=== PATIENT | female | born 1950 | race Caucasian/White ===

== ENCOUNTER 2019-04-01 05:29 | Inpatient (IN) | payer MEDICARE ==
--- NOTE | 2019-03-19 17:49 | HP ---
Amended report to enter cosigning physician. HISTORY AND PHYSICAL: DATE OF ADMISSION/SURGERY: 04/01/19 DATE OF OFFICE VISIT: 03/19/19 SURGEON: Sadia Parada MD* (dictated by GIOVANNA Mills). PROCEDURE: Left total knee arthroplasty. CHIEF COMPLAINT: Left knee pain. HISTORY OF PRESENT ILLNESS: Ms. Davis is a 68-year-old female with end-stage osteoarthritis of the left knee. She has failed conservative treatment and elected to proceed with a left total knee arthroplasty. PAST MEDICAL HISTORY: GERD, asthma, and high cholesterol. PAST SURGICAL HISTORY: Right total knee arthroplasty, oophorectomy and C- section. CURRENT MEDICATIONS: 1. Rosuvastatin calcium 5 mg q.h.s. 2. Ventolin inhaler 2 puffs four times a day as needed. 3. Pantoprazole 30 and 40 mg every other day. 4. Tylenol as needed. 5. Vitamin D3 and daily multivitamin. ALLERGIES: No known drug allergies. FAMILY HISTORY: Denies. SOCIAL HISTORY: She is a 68-year-old female. She lives with her . She does not smoke or use drugs. She uses alcohol rarely. REVIEW OF SYSTEMS: A complete 14-point review of systems was reviewed with the patient. It was positive for asthma and GERD. She denies history of DVT, PE, hepatitis, HIV, or anesthesia problems. PHYSICAL EXAMINATION GENERAL: She is well developed, well nourished, in no acute distress. VITAL SIGNS: She stands 5 feet tall, weighs 186 pounds. Her blood pressure is 126/76. Her heart rate is 64. HEENT: Normocephalic, atraumatic. NECK: Supple. No palpable lymph nodes. PULMONARY: Lungs are clear to auscultation bilaterally. CARDIO: Regular rate and rhythm. Strong S1, S2. ABDOMEN: Soft, nontender, nondistended. NEUROLOGICAL: She is alert and oriented x3. MUSCULOSKELETAL: Left lower extremity, the skin is intact. There are no open wounds or abrasions. There is some moderate effusion of the left knee joint, some tenderness over the medial joint line. There is a varus deformity of the knee. Range of motion is 10 to 100 degrees of flexion with significant patellofemoral crepitus. She is able to dorsiflex and plantar flex. She has a 2+ dorsalis pedis pulse. ASSESSMENT AND PLAN: Ms. Davis is a 68-year-old female with end-stage osteoarthritis of the left knee. She has failed conservative treatment and elected to proceed with a left total knee arthroplasty. The surgery is scheduled for 04/01/[address] Parada discussed the risks and benefits of the surgery at today's visit and all of her questions were answered. She will follow up with Dr. Parada 2 weeks after the surgery. GIOVANNA MILLS [id number]/[facility] #: [id number] ESTEE
[~2019-04-01 05:29] MED LIST: Buffered Lidocaine 1% SYRIN* 1 ML/SYRINGE INTRADERM ONE; Tranexamic Acid 1,000 MG in NS 0.9% 50 ML* (outpatient use) IV SCH
--- OUTSIDE RECORDS SUMMARY | 2019-04-01 05:32 | XMS REPORT | Continuity of Care Document ---
:1950 External Reference #:[id number] Author Name Connie Bond Care Team Providers Name Role Phone Nkechi Jain FNP Primary Care Physician Unavailable Payers Date Identification Numbers Payment Provider Subscriber Expires: 2018 Policy Number: [id number] [employer] Jolene Davis PayID: [id number] [address] [place] [address] Policy Number: [id number] [employer] Jolene Davis PayID: [id number] [address] [place] [address] Problems Active Problems Provider Date Lipoma of skin Sadia Parada M.D. Onset: 06/10/2018 Localized, primary osteoarthritis Sadia Parada M.D. 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 Tobacco Use Start: Unknown Never Smoked Cigarettes Smoking Status Reviewed: 03/19/19 Never Smoked Cigarettes ETOH Use Rarely consumes alcohol Recreational Drug Use Denies Drug Use Tobacco Use Start: Unknown Patient has never smoked Exercise Type/Frequency Does not exercise Allergies, Adverse Reactions, Alerts Description No Known Drug Allergies Medications Active Medications SIG Qnty Indications Ordering Provider Date Rosuvastatin Calcium 1 by mouth every Unknown 5mg night at bedtime Tablets Ventolin HFA 2 puffs by mouth Unknown 108(90Base) four times a day mcg/Act Aerosol as needed Pantoprazole Sodium 1 by mouth every Unknown 40mg other day Solution Rec Tylenol take 2 tabs as Unknown 325mg Tablets needed every 6 hours for pain/fever One Daily 1 tab daily by Unknown Tablets mouth History Medications Aspirin take 1 by mouth 60tabs Sadia Tal, 08/15/2018 - 325mg Tablets twice a day for M.D. 09/27/2018 four weeks Zofran take 1 by mouth 30tabs Sadia Tal, 08/15/2018 - 4mg Tablets twice a day as M.D. 09/27/2018 needed for nausea Cyclobenzaprine HCL take 1 tab by 90tabs Sadia Parada, 08/15/2018 - 10mg mouth 2-3 times M.D. 09/27/2018 Tablets a day as needed Colace 1 tab by mouth 90caps Sadia Parada, 08/15/2018 - 100mg Capsules 2-3 times a day M.D. 11/08/2018 as needed Percocet 1-2 by mouth 70tabs Sadia Parada, 08/15/2018 - 5-325mg Tablets every 6 hours as M.D. 11/08/2018 needed pain Diazepam take 1 tab 30 1tabs Sadai Parada, 06/12/2018 - 5mg Tablets minutes prior to M.D. Unknown MRI. Mobic take 1 daily Unknown - 15mg Tablets with food. 04/26/2018 Montelukast Sodium 1 by mouth every Unknown - 10mg Tablets day 04/26/2018 Aspirin Adult Low take one tablet Unknown - Strength by mouth daily. 04/28/[address] Elizabeth braswelln Unknown - 08/02/2018 Vital Signs Date Vital Result Comment 03/19/2019 8:26am Height 60 inches 5'0" Weight 186.00 lb Heart Rate 64 /min BP Systolic 126 mmHg BP Diastolic 76 mmHg BMI (Body Mass Index) 36.3 kg/m2 02/17/2019 9:27am Height 60 inches 5'0" Weight 184.00 lb Heart Rate 72 /min BP Systolic 116 mmHg BP Diastolic 82 mmHg Respiratory Rate 12 /min Body Temperature 97.7 F Pain Level 0 BMI (Body Mass Index) 35.9 kg/m2 11/09/2018 10:31am Height 60 inches 5'0" Weight 175.00 lb BP Systolic 118 mmHg BP Diastolic 72 mmHg Respiratory Rate 17 /min Pain Level 2 BMI (Body Mass Index) 34.2 kg/m2 09/28/2018 10:37am Height 60 inches 5'0" Weight 173.00 lb BP Systolic 118 mmHg BP Diastolic 72 mmHg Body Temperature 98.1 F BMI (Body Mass Index) 33.8 kg/m2 09/15/2018 11:22am Height 61 inches 5'1" Weight 174.00 lb Heart Rate 78 /min BP Systolic 126 mmHg BP Diastolic 76 mmHg Respiratory Rate 12 /min Body Temperature 98.4 F Pain Level 5 BMI (Body Mass Index) 32.9 kg/m2 08/26/2018 10:25am Height 61 inches 5'1" Weight 188.00 lb BP Systolic 120 mmHg BP Diastolic 82 mmHg Respiratory Rate 18 /min Body Temperature 98.1 F Pain Level 2 BMI (Body Mass Index) 35.5 kg/m2 08/03/2018 8:47am Height 61 inches 5'1" Weight 188.75 lb Heart Rate 62 /min BP Systolic 122 mmHg BP Diastolic 78 mmHg Respiratory Rate 18 /min Body Temperature 97.6 F Pain Level 3 BMI (Body Mass Index) 35.7 kg/m2 06/25/2018 8:52am Height 61 inches 5'1" Weight 187.00 lb Heart Rate 66 /min BP Systolic Sitting 122 mmHg BP Diastolic Sitting 88 mmHg Respiratory Rate 18 /min Body Temperature 98.6 F BMI (Body Mass Index) 35.3 kg/m2 06/10/2018 11:05am Height 60.25 inches 5'0.25" Weight 191.00 lb Heart Rate 64 /min BP Systolic 130 mmHg BP Diastolic 80 mmHg BMI (Body Mass Index) 37.0 kg/m2 05/27/2018 10:23am Height 60 inches 5'0" Weight 187.00 lb Heart Rate 66 /min BP Systolic Sitting 116 mmHg BP Diastolic Sitting 58 mmHg Respiratory Rate 16 /min Pain Level 7 BMI (Body Mass Index) 36.5 kg/m2 Results Test Date Facility Test Result H/L Range Note Urinalysis Profile 08/03/2018 [facility] Urine Color Mandi [address] [place] [address] [phone] Urine Appearance Cloudy Urine Specific Gilbert 1.015 N 1.010-1.030 Urine pH 5.0 N 5-9 Urine Urobilinogen Negative Negative Urine Ketones Negative Negative Urine Protein Negative Negative Urine Leukocytes Negative Negative Urine Blood Negative Negative * * Abnormal Negative 1 Urine Nitrite Negative Negative Urine Bilirubin Negative Negative Urine Glucose Negative Negative CBC Auto Diff 08/03/2018 [facility] White Blood 5.9 10^3/uL N 3.5-10.[address] [place] [address] [phone] Red Blood Count 5.54 10^6/uL High 4.00-5.40 Hemoglobin 15.2 g/dL N 12.0-16.0 Hematocrit 46 % N 35-47 Mean Corpuscular Volume 84 fL N 80-97 Mean Corpuscular Hemoglobin 28 pg N 27-31 Mean Corpuscular HGB Conc 33 g/dL N 31-36 Red Cell Distribution Width 15 % N 10.5-15 Platelet Count 317 10^3/uL N 150-450 Mean Platelet Volume 7.7 um3 N 7.4-10.4 Abs Neutrophils 4.1 10^3/uL N 1.5-7.7 Abs Lymphocytes 1.3 10^3/uL N 1.0-4.8 Abs Monocytes 0.3 10^3/uL N 0-0.8 Abs Eosinophils 0.1 10^3/uL N 0-0.6 Abs Basophils 0.1 10^3/uL N 0-0.2 Abs Nucleated RBC 0 10^3/uL Granulocyte % 70.3 % N 38-83 Lymphocyte % 21.7 % Low 25-47 Monocyte % 5.8 % N 0-7 Eosinophil % 1.3 % N 0-6 Basophil % 0.9 % N 0-2 Nucleated Red Blood Cells % 0.1 Inr/Protime 08/03/2018 [facility] Inr 0.89 N 0.77-1.[address] [place] [address] [phone] Laboratory test 08/03/2018 [facility] Partial 29.2 seconds N 26.0-36.[address] [place] [address] PTT [phone] Type & Screen 08/03/2018 [facility] Patient A Positive [address] [place] [address] [phone] Antibody Screen NEGATIVE Comp Metabolic Panel 08/03/2018 [facility] Sodium 143 mmol/L N 135-[address] [place] [address] [phone] Potassium 4.1 mmol/L N 3.5-5.0 Chloride 106 mmol/L N 101-111 Co2 Carbon Dioxide 28 mmol/L N 22-32 Anion Gap 9 mmol/L N 2-11 Glucose 101 mg/dL High 70-100 Blood Urea Nitrogen 15 mg/dL N 6-24 Creatinine 0.84 mg/dL N 0.51-0.95 BUN/Creatinine Ratio 17.9 N 8-20 Calcium 9.8 mg/dL N 8.6-10.3 Total Protein 6.7 g/dL N 6.4-8.9 Albumin 4.6 g/dL N 3.2-5.2 Globulin 2.1 g/dL N 2-4 Albumin/Globulin Ratio 2.2 N 1-3 Total Bilirubin 0.70 mg/dL N 0.2-1.0 Alkaline Phosphatase 66 U/L N 34-104 Alt 26 U/L N 7-52 Ast 21 U/L N 13-39 Egfr Non- 67.8 >60 Egfr 82.1 >60 2 Urine Culture And 08/03/2018 [facility] Urine Culture SEE RESULT [address] [place] [address] [phone] 1 *Ascorbic acid is present which may interfere with detection of blood. 2 Because ethnic data is not always readily available, this report includes an eGFR for both -Americans and non- Americans. The National Kidney Disease Education Program (NKDEP) does not endorse the use of the MDRD equation for patients that are not between the ages of 18 and 70, are , have extremes of body size, muscle mass, or nutritional status, or are non- or non-. According to the National Kidney Foundation, irrespective of diagnosis, the stage of the disease is based on the level of kidney function: Stage Description GFR(mL/min/1.73 m(2)) 1 Kidney damage with normal or decreased GFR 90 2 Kidney damage with mild decrease in GFR 60-89 3 Moderate decrease in GFR 30-59 4 Severe decrease in GFR 15-29 5 Kidney failure <15 (or dialysis) 3 SEE RESULT BELOW Name: JOLENE DAVIS : [address]: Sadia Parada MD Acct: [id number] Unit: [id number] AGE: 67 Location: PAT Re08/03/18 SEX: F Status: REG REF SPEC: [id number] ADIS: 08/03/18-[address]: Sadia Parada MD REQ: [id number] RECD: 08/03/18 STATUS: COMP _ SOURCE: URINE SPDESC: ORDERED: Urine Culture QUERIES: Urine Source: Clean Catch Procedure Result Reported Site Urine Culture Final 08/04/18- 1321 ML No growth of clinically significant organisms * - Main Lab . END OF REPORT DEPARTMENT OF PATHOLOGY, [address] [place] [address] Larry Means M.D. Director [facility] # [id number] Procedures Date Code Description Status 08/13/2018 21838 TKR Total Knee Replacement Completed 08/13/2018 27468 TKR Total Knee Replacement Completed 08/13/2018 39077 TKR Total Knee Replacement Completed Encounters Type Date Location Provider Dx Diagnosis Office Visit 02/17/2019 Orthopedic Sadia Parada, M25.562 Pain in left knee 9:15a [facility] M25.462 Effusion, left knee M17.12 Unilateral primary osteoarthritis, left knee Office Visit 06/25/2018 9:00a Surgical Kwadwo Loaiza, D17.1 [facility] lipomatous neoplasm of skin, subcu of trunk Office Visit 06/10/2018 10:45a Orthopedic Sadia Parada M25.562 Pain in left [facility] knee [facility] M25.561 Pain in right knee M25.462 Effusion, left knee M25.461 Effusion, right knee M17.0 Bilateral primary osteoarthritis of knee M25.512 Pain in left shoulder D17.22 Benign lipomatous neoplasm of skin, subcu of left arm R22.1 Localized swelling, mass and lump, neck Office Visit 05/27/2018 10:00a Lenin Queen M17.0 Bilateral primary [facility] MD osteoarthritis of AT [place] knee Plan of Treatment Future Appointment(s):04/14/2019 8:30 am - Sadia Parada M.D. at [facility]04/01/2019 7:30 am - [facility] - Sadia Parada M.D.M25.562 Pain in left kneeFollow up:Follow up: 2 weeks after commzzdD34.462 Effusion, left kneeM17.12 Unilateral primary osteoarthritis, left knee
--- OUTSIDE RECORDS SUMMARY | 2019-04-01 05:33 | XMS REPORT | Continuity of Care Document ---
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 Payers Date Identification Numbers Payment Provider Subscriber Policy Number: [id number] [employer] Jolene Davis Group Number: [id number] [address] PayID: [id number] [place] [address] Effective: 2016 Policy Number: [id number] [facility] Jolene Davis Expires: 2017 PayID: [id number] [address] [address] NATALIO Alfonso [id number] Problems Active Problems Provider Date Allergic rhinitis Low Sanches DO Onset: 09/03/2011 Gastroesophageal reflux disease Berenice Srinivasan MD Onset: 01/24/2006 Mixed hyperlipidemia Berenice Srinivasan MD Onset: 01/24/2006 Intrinsic asthma without status Berenice Srinivasan MD Onset: 01/24/2006 asthmaticus 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 Work Status Retired ETOH Use Occasionally consumes alcohol Tobacco Use Start: Unknown Patient has never smoked Smoking Status Reviewed: 09/22/18 Patient has never smoked Allergies, Adverse Reactions, Alerts Description No Known Drug Allergies Medications Active Medications SIG Qnty Indications Ordering Provider Date Rosuvastatin Calcium take 1 tablet by 90tabs E78.2 Rachaeliovanna, 09/28/2017 5mg mouth every day Kelvin, CLIENT CARE MANAGER Tablets in the evening Ventolin HFA 2 puffs every 4 8gm J45.20 Low Sanches, 09/09/2017 108(90Base) hours as needed DO mcg/Act Aerosol J45.909 Pantoprazole Sodium take 1 tablet by 90tabs K21.9 Digiovijay Kelvin, 40mg mouth once a day CLIENT CARE MANAGER Tablets Montelukast Sodium 1 po qd prn 30tabs J30.9 Low Sanches, DO 2004 10mg Tablets J45.909 Oxycodone HCL 1 by mouth every 6 hours Tal Calero MD 5mg Tablets as needed pain History Medications Mobic Take 1 Tablet By 30tabs M15.0 Low Sanches, 03/07/2017 - 15mg Tablets Mouth Every DO 07/21/2018 Other Day With Food Meloxicam 1 by mouth every 30tabs M15.0 Low Sanches, 06/19/2015 - 15mg day with food DO 03/07/2017 Tablets Ventolin HFA 2 puffs by mouth 1Units J45.20 Low Sanches, 07/21/2014 - every 4 hours as DO 09/09/2017 108mcg/Act Aerosol needed Ciclopirox Apply Thi Layer 6.6ml Low Sanches, 04/27/2014 - 8% To Toe Nails At DO 12/19/2014 Solution Bedtime Daily Crestor Take 1 Tablet By 30tabs E78.2 Low Sanches, 02/28/2010 - 5mg Tablets Mouth Every Day DO 09/28/2017 Elana Aspirin Ec 1 tab qd prn E78.2 Unknown - Low Dose 09/22/2018 81mg Tablets Immunizations CPT Code Status Date Vaccine Reaction Lot # [id number] Given 10/13/2018 Flu Vaccine NOS [id number] Given 09/22/2018 Pneumococcal 23 Immunization Im inj completed, Pt [id number] Adult Or Immunosuppressed tolerated well Patient 54380 Given 09/09/2017 Prevnar 13 Pneumococal Im inj completed, Pt [id number] Conjugate Vaccine tolerated well 37920 Given 09/03/2011 Afluria Or Fluvirin Flu Vac Intramuscular 19613 Given 08/21/2005 Afluria Or Fluvirin Flu Vac Intramuscular 96918 Given 01/12/2003 Immunization Td 7 Yrs Or Older [id number] Refused 03/09/2018 Afluria Imunization Vital Signs Date Vital Result Comment 03/12/2019 8:38am Weight 186.56 lb Heart Rate 76 /min BP Systolic 128 mmHg BP Diastolic 80 mmHg Respiratory Rate 18 /min Height 60.5 inches 5'0.50" KENNY LAINEZ 03/12/19 BMI (Body Mass Index) 35.8 kg/m2 09/22/2018 8:33am Weight 179.44 lb Heart Rate 76 /min BP Systolic 124 mmHg BP Diastolic 78 mmHg Respiratory Rate 18 /min Height 59.75 inches 4'11.75" 09/22/18 KENNY LAINEZ BMI (Body Mass Index) 35.3 kg/m2 07/21/2018 10:04am Body Temperature 98.7 F tympanic Weight 189.44 lb Heart Rate 72 /min BP Systolic 120 mmHg BP Diastolic 78 mmHg Respiratory Rate 16 /min Height 60 inches 5'0" 07/21/18 KENNY LAINEZ BMI (Body Mass Index) 37.0 kg/m2 03/09/2018 8:17am Weight 196.00 lb Heart Rate 72 /min BP Systolic 120 mmHg BP Diastolic 78 mmHg Respiratory Rate 18 /min Height 60 inches 5'0" BMI (Body Mass Index) 38.3 kg/m2 09/09/2017 11:20am Weight 195.56 lb Heart Rate 78 /min 72 Reg BP Systolic 136 mmHg BP Diastolic 80 mmHg BP Systolic Recheck 130 mmHg BP Diastolic Recheck 80 mmHg Respiratory Rate 18 /min Height 60 inches 5'0" 09/09/17 BMI (Body Mass Index) 38.2 kg/m2 03/06/2017 3:06pm Weight 187.00 lb Heart Rate 76 /min 72 Reg BP Systolic 130 mmHg BP Diastolic 86 mmHg BP Systolic Recheck 130 mmHg BP Diastolic Recheck 82 mmHg Respiratory Rate 16 /min Height 60 inches 5'0" BMI (Body Mass Index) 36.5 kg/m2 08/28/2016 9:40am Weight 175.00 lb Heart Rate 72 /min 72 Reg BP Systolic 108 mmHg Very Faint. BP Diastolic 72 mmHg Very Faint. BP Systolic Recheck 120 mmHg BP Diastolic Recheck 74 mmHg Respiratory Rate 18 /min Height 60 inches 5'0" BMI (Body Mass Index) 34.2 kg/m2 01/26/2016 8:14am Weight 174.00 lb Heart Rate 66 /min 72 Reg BP Systolic 112 mmHg BP Diastolic 68 mmHg BP Systolic Recheck 120 mmHg BP Diastolic Recheck 72 mmHg Respiratory Rate 18 /min Height 59.5 inches 4'11.50" BMI (Body Mass Index) 34.6 kg/m2 06/19/2015 8:25am Weight 177.00 lb Heart Rate 78 /min 80 Reg BP Systolic 130 mmHg BP Diastolic 80 mmHg BP Systolic Recheck 124 mmHg BP Diastolic Recheck 80 mmHg Respiratory Rate 18 /min 12/19/2014 8:51am Weight 201.00 lb Heart Rate 66 /min 72 Reg BP Systolic 110 mmHg BP Diastolic 80 mmHg BP Systolic Recheck 130 mmHg BP Diastolic Recheck 80 mmHg Respiratory Rate 18 /min Height 60 inches 5'0" BMI (Body Mass Index) 39.3 kg/m2 04/27/2014 10:57am Weight 200.00 lb Heart Rate 66 /min BP Systolic 128 mmHg BP Diastolic 80 mmHg Respiratory Rate 18 /min Height 60 inches 5'0" 03/10/2014 8:21am BP Systolic 122 mmHg BP Diastolic 80 mmHg 03/10/2014 8:21am Weight 201.00 lb Heart Rate 66 /min 72 Reg BP Systolic 132 mmHg BP Diastolic 76 mmHg Respiratory Rate 18 /min Height 60.25 inches 5'0.25" 09/09/2013 8:23am BP Systolic 122 mmHg BP Diastolic 82 mmHg 09/09/2013 8:23am Weight 195.00 lb Heart Rate 78 /min 72 Reg BP Systolic 130 mmHg BP Diastolic 86 mmHg Respiratory Rate 18 /min 03/04/2013 8:10am BP Systolic 128 mmHg BP Diastolic 82 mmHg 03/04/2013 8:10am Weight 196.00 lb Heart Rate 72 /min 72 Reg BP Systolic 132 mmHg BP Diastolic 90 mmHg Respiratory Rate 24 /min 09/03/2012 8:12am BP Systolic 124 mmHg BP Diastolic 70 mmHg 09/03/2012 8:12am Weight 195.00 lb Heart Rate 66 /min 68 Reg BP Systolic 128 mmHg BP Diastolic 62 mmHg Respiratory Rate 18 /min 03/03/2012 8:07am BP Systolic 130 mmHg BP Diastolic 80 mmHg 03/03/2012 8:07am Weight 207.00 lb Heart Rate 72 /min 72 Reg BP Systolic 132 mmHg BP Diastolic 82 mmHg Respiratory Rate 18 /min O2 % BldC Oximetry 97 % Ra 09/03/2011 8:05am BP Systolic 122 mmHg BP Diastolic 82 mmHg 09/03/2011 8:05am Weight 204.00 lb Heart Rate 72 /min 72 Reg BP Systolic 118 mmHg BP Diastolic 86 mmHg Respiratory Rate 18 /min Height 60.50 inches 5'0.50" O2 % BldC Oximetry 96 % Ra 02/28/2011 8:04am BP Systolic 120 mmHg BP Diastolic 70 mmHg 02/28/2011 8:04am Weight 199.00 lb Heart Rate 78 /min 72 Reg BP Systolic 118 mmHg BP Diastolic 70 mmHg Respiratory Rate 18 /min 08/31/2010 8:04am Weight 203.00 lb Heart Rate 78 /min BP Systolic 132 mmHg BP Diastolic 88 mmHg Respiratory Rate 18 /min 07/18/2010 4:27pm Weight 205.00 lb Heart Rate 72 /min BP Systolic 114 mmHg l arm BP Diastolic 70 mmHg l arm Respiratory Rate 18 /min 03/07/2010 11:09am Weight 203.50 lb Heart Rate 76 /min BP Systolic 112 mmHg BP Diastolic 74 mmHg Respiratory Rate 18 /min 02/28/2010 9:00am Weight 203.00 lb Heart Rate 78 /min BP Systolic 126 mmHg BP Diastolic 82 mmHg Respiratory Rate 18 /min 08/30/2009 9:05am Weight 201.00 lb Heart Rate 72 /min BP Systolic 122 mmHg BP Diastolic 86 mmHg Respiratory Rate 18 /min 03/22/2009 8:55am BP Systolic 136 mmHg BP Diastolic 86 mmHg 03/22/2009 8:55am Weight 205.00 lb Heart Rate 74 /min BP Systolic 138 mmHg R/LG BP Diastolic 90 mmHg R/LG Respiratory Rate 14 /min Height 60.75 inches 5'0.75" 02/15/2009 8:58am BP Systolic 120 mmHg BP Diastolic 80 mmHg 02/15/2009 8:58am Weight 204.00 lb Heart Rate 78 /min 72 Reg BP Systolic 118 mmHg BP Diastolic 76 mmHg Respiratory Rate 18 /min 08/17/2008 8:59am Weight 194.00 lb Heart Rate 78 /min BP Systolic 118 mmHg BP Diastolic 86 mmHg Respiratory Rate 24 /min Height 60.5 inches 5'0.50" 07/07/2008 10:33am Weight 197.00 lb Heart Rate 84 /min BP Systolic 112 mmHg BP Diastolic 68 mmHg Respiratory Rate 24 /min Height 60.5 inches 5'0.50" O2 % BldC Oximetry 98 % Ra 04/18/2008 2:33pm Weight 199.31 lb Heart Rate 88 /min BP Systolic 126 mmHg BP Diastolic 72 mmHg Respiratory Rate 18 /min Height 60.5 inches 5'0.50" 04/06/2008 11:02am Weight 198.00 lb Heart Rate 76 /min BP Systolic 120 mmHg BP Diastolic 70 mmHg Respiratory Rate 18 /min Height 60.5 inches 5'0.50" 03/11/2008 1:59pm Weight 202.00 lb Heart Rate 75 /min BP Systolic 110 mmHg BP Diastolic 70 mmHg Respiratory Rate 17 /min Height 60.5 inches 5'0.50" 02/15/2008 11:17am Weight 196.00 lb Heart Rate 72 /min BP Systolic 118 mmHg BP Diastolic 62 mmHg Respiratory Rate 18 /min Height 60.5 inches 5'0.50" O2 % BldC Oximetry 96 % Ra 02/05/2006 3:28pm Weight 203.00 lb Heart Rate 80 /min BP Systolic 128 mmHg Large cuff, RIGHT arm BP Diastolic 76 mmHg Large cuff, RIGHT arm Respiratory Rate 18 /min Height 60.5 inches 5'0.50" 01/24/2006 2:01pm BP Systolic 146 mmHg Large cuff, LEFT arm,rechk 122/82 BP Diastolic 82 mmHg Large cuff, LEFT arm,rechk 122/82 01/24/2006 2:01pm Weight 206.00 lb Heart Rate 84 /min BP Systolic 148 mmHg Large cuff RIGHT arm BP Diastolic 78 mmHg Large cuff RIGHT arm Respiratory Rate 20 /min Height 60.5 inches 5'0.50" 08/21/2005 8:38am Weight 200.00 lb Heart Rate 78 /min BP Systolic 128 mmHg BP Diastolic 84 mmHg Respiratory Rate 16 /min 02/20/2005 8:25am Weight 206.00 lb Heart Rate 74 /min BP Systolic 128 mmHg BP Diastolic 86 mmHg Respiratory Rate 16 /min Results Test Date Facility Test Result H/L Range Note CBC with Auto Diff-fcmg 03/12/2019 [facility] WBC 4.5 K/uL 4.1-11.0 RBC 5.21 M/uL 4.00-5.40 Hemoglobin 14.7 gm/dL 12.0-16.0 Hematocrit 44.1 % 36.0-47.0 MCV 84.7 fL 80.0-97.0 MCH 28.3 pg 27.0-32.0 MCHC 33.4 g/dL 32.0-36.0 RDW 15.4 % High 11.5-14.5 PLT Count 314 K/ul 140-400 MPV 8.3 FL 7.1-10.7 Neutrophil 59.9 % 35.0-75.0 Lymphocyte 28.7 % 16.0-52.0 Monocyte 7.5 % 2.0-10.0 Eosinophil 2.7 % 0.0-5.0 Basophil 1.2 % 0.0-4.0 Abs Neutrophils 2.7 K/uL 2.1-8.0 Abs Lymphocytes 1.3 K/uL 0.8-5.5 Abs Monocytes 0.3 K/uL 0.1-1.0 Abs Eosinophils 0.1 K/uL 0.0-0.5 Abs Basophils 0.1 K/uL 0.0-0.3 [facility] Micro[facility] res 1 finding <SEE NOTE> Hemoglobin A1c 03/12/2019 [facility] Hemoglobin A1c 5.7 % 4.1-5.9 Estimated Average Glucose Calc 117 mg/dL 71-140 Basic (BMP) [facility] Sodium 143 mmol/L 135-146 2 Potassium 4.1 mmol/L 3.5-5.2 Chloride# 105 mmol/L 97-110 3 Carbon Dioxide 32 mmol/L 24-34 Glucose 84 mg/dL 70-105 BUN 17 mg/dL 6-26 Creatinine 0.8 mg/dL 0.5-1.4 Calcium 9.8 mg/dL 8.5-10.5 4 Female Egfr 72 >60 5 Male Egfr 90 >60 6 Anion Gap 6 mmol/L 5-15 7 [facility] Ch[facility] 219 mg/dL High 50-199 Triglycerides 167 mg/dL 30-200 HDL 59 mg/dL 35-85 8 Chol/ HDL Ratio 3.7 ratio 3.7-5.6 VLDL 33 mg/dL High 2-29 LDL (Calc) 126 mg/dL High 20-99 9 Alt 19 U/L 3-42 Ast 18 U/L 8-42 Laboratory test 02/26/2019 [facility] Vitamin D 25 41 ng/mL 30-100 10 finding Hydroxy Laboratory test 09/04/2018 [facility] Hepatitis C NON REACTIVE Non Reactive 11, 12 finding Virus Antibody S/CORatio(Tye Hemoglobin A1c 09/04/2018 [facility] Hemoglobin A1c 5.5 % 4.1-5.9 Estimated Average Glucose Calc 111 mg/dL 71-140 Lipid 09/04/2018 [facility] Cholesterol 163 mg/dL 50-199 Triglycerides 129 mg/dL 30-200 HDL 49 mg/dL 35-85 13 Chol/ HDL Ratio 3.3 ratio Low 3.7-5.6 VLDL 26 mg/dL 2-29 LDL (Calc) 88 mg/dL - 14 Basic (BMP) 09/04/2018 [facility] Sodium 144 mmol/L 135-146 15 Potassium 4.0 mmol/L 3.5-5.2 Chloride# 105 mmol/L 97-110 16 Carbon Dioxide 30 mmol/L 24-34 Glucose 104 mg/dL 70-105 BUN 19 mg/dL 6-26 Creatinine 0.9 mg/dL 0.5-1.4 Calcium 9.2 mg/dL 8.5-10.2 Non Yanira Egfr >60 >60 17 Yanira Egfr >60 >60 18 Anion Gap 9 mmol/L 5-15 19 Lipid Treatment 03/02/2018 [facility] Cholesterol 175 mg/dL 50-199 20 Triglycerides 166 mg/dL 30-200 HDL 64 mg/dL 35-85 21 Chol/ HDL Ratio 2.7 ratio Low 3.7-5.6 VLDL 33 mg/dL High 2-29 LDL (Calc) 78 mg/dL 22 Alt 24 U/L 3-42 Ast 18 U/L 8-42 Basic (BMP) 03/02/2018 [facility] Sodium 144 mmol/L 135-146 23 Potassium 4.2 mmol/L 3.5-5.2 Chloride# 107 mmol/L 97-110 24 Carbon Dioxide 29 mmol/L 24-34 Glucose 105 mg/dL 70-105 BUN 21 mg/dL 6-26 Creatinine 0.9 mg/dL 0.5-1.4 Calcium 9.4 mg/dL 8.5-10.2 Non Yanira Egfr >60 >60 25 Yanira Egfr >60 >60 26 Anion Gap 8 mmol/L 5-15 27 Hemoglobin A1c 03/02/2018 [facility] Hemoglobin A1c 5.8 % 4.1-5.9 Estimated Average Glucose Calc 120 mg/dL 71-140 CBC With Auto Diff 03/02/2018 [facility] WBC 4.9 K/uL 4.1-11.0 RBC 5.14 M/uL 4.00-5.40 Hemoglobin 14.5 gm/dL 12.0-16.0 Hematocrit 42.8 % 36.0-47.0 MCV 83.3 fL 80.0-97.0 MCH 28.2 pg 27.0-32.0 MCHC 33.8 g/dL 32.0-36.0 RDW 15.0 % High 11.5-14.5 PLT Count 278 K/ul 140-400 MPV 8.0 FL 7.1-10.7 Neutrophil 57.5 % 35.0-75.0 Lymphocyte 25.0 % 16.0-52.0 Monocyte 6.3 % 2.0-10.0 Eosinophil 9.0 % High 0.0-5.0 Basophil 2.2 % 0.0-4.0 Abs Neutrophils 2.8 K/uL 2.1-8.0 Abs Lymphocytes 1.2 K/uL 0.8-5.5 Abs Monocytes 0.3 K/uL 0.1-1.0 Abs Eosinophils 0.4 K/uL 0.0-0.5 Abs Basophils 0.1 K/uL 0.0-0.3 Laboratory test finding 03/02/2018 [facility] Magnesium 2.0 mg/dL 1.5-2.7 Lipid Treatment 09/02/2017 [facility] Cholesterol 218 mg/dL High 50-199 Triglycerides 163 mg/dL High 30-150 HDL 68 mg/dL 45-85 28 Chol/ HDL Ratio 3.2 ratio Low 3.7-5.6 VLDL 33 mg/dL High 2-29 LDL (Calc) 117 mg/dL 20-129 29 Alt 19 U/L 3-42 Ast 15 U/L 8-42 Basic (BMP) 09/02/2017 [facility] Sodium 145 mmol/L 135-146 30 Potassium 4.6 mmol/L 3.5-5.2 Chloride# 105 mmol/L 97-110 31 Carbon Dioxide 30 mmol/L 24-34 Glucose 100 mg/dL 70-105 Creatinine 1.0 mg/dL 0.5-1.4 Calcium 9.5 mg/dL 8.5-10.2 Non Yanira Egfr 57 Low >60 32 Yanira Egfr >60 >60 33 Anion Gap 10 mmol/L 7-16 34 BUN 24 mg/dL 6-26 Hemoglobin A1c 09/02/2017 [facility] Hemoglobin A1c 6.0 % 4.1-6.5 Estimated Average Glucose Calc 126 71-140 CBC With Auto Diff 09/02/2017 [facility] WBC 5.5 K/uL 4.1-11.0 RBC 5.34 M/uL 4.00-5.40 Hemoglobin 14.8 gm/dL 12.0-16.0 Hematocrit 44.7 % 36.0-47.0 MCV 83.6 fL 80.0-97.0 MCH 27.7 pg 27.0-32.0 MCHC 33.1 g/dL 32.0-36.0 RDW 14.5 % 11.5-14.5 PLT Count 304 K/ul 140-400 MPV 8.2 FL 7.1-10.7 Neutrophil 50.6 % 35.0-75.0 Lymphocyte 33.1 % 16.0-52.0 Monocyte 8.9 % 2.0-10.0 Eosinophil 6.0 % High 0.0-5.0 Basophil 1.4 % 0.0-4.0 Abs Neutrophils 2.8 K/uL 2.1-8.0 Abs Lymphocytes 1.8 K/uL 0.8-5.5 Abs Monocytes 0.5 K/uL 0.1-1.0 Abs Eosinophils 0.3 K/uL 0.0-0.5 Abs Basophils 0.1 K/uL 0.0-0.3 Laboratory test finding 09/02/2017 [facility] Magnesium 2.1 mg/dL 1.5-2.7 Lipid Treatment 02/18/2017 [facility] Cholesterol 170 mg/dL 50-199 Triglycerides 87 mg/dL 30-150 HDL 61 mg/dL 45-85 35 Chol/ HDL Ratio 2.8 ratio Low 3.7-5.6 VLDL 17 mg/dL 2-29 LDL (Calc) 92 mg/dL 20-99 36 Alt 19 U/L 3-42 Ast 15 U/L 8-42 Laboratory test finding 02/18/2017 [facility] Magnesium 1.9 mg/dL 1.5-2.7 CBC With Auto Diff 02/18/2017 [facility] WBC 4.3 K/uL 4.1-11.0 RBC 5.12 M/uL 4.00-5.40 Hemoglobin 14.1 gm/dL 12.0-16.0 Hematocrit 43.2 % 36.0-47.0 MCV 84.5 fL 80.0-97.0 MCH 27.6 pg 27.0-32.0 MCHC 32.6 g/dL 32.0-36.0 RDW 14.6 % High 11.5-14.5 PLT Count 291 K/ul 140-400 Neutrophil 53.6 % 35.0-75.0 Lymphocyte 32.5 % 16.0-52.0 Monocyte 7.5 % 2.0-10.0 Eosinophil 4.4 % 0.0-5.0 Basophil 2.0 % 0.0-4.0 Abs Neutrophils 2.3 K/uL 2.1-8.0 Abs Lymphocytes 1.4 K/uL 0.8-5.5 Abs Monocytes 0.3 K/uL 0.1-1.0 Abs Eosinophils 0.2 K/uL 0.0-0.5 Abs Basophils 0.1 K/uL 0.0-0.3 Hemoglobin A1c 02/18/2017 [facility] Hemoglobin A1c 5.7 % 4.1-6.5 Estimated Average Glucose Calc 117 71-140 Basic (BMP) 02/18/2017 [facility] Sodium 142 mmol/L 135-146 37 Potassium 4.2 mmol/L 3.5-5.2 Chloride# 107 mmol/L 97-110 38 Carbon Dioxide 28 mmol/L 24-34 Glucose 96 mg/dL 70-105 BUN 22 mg/dL 6-26 Creatinine 0.8 mg/dL 0.5-1.4 Calcium 9.2 mg/dL 8.5-10.2 Non Yanira Egfr >60 >60 39 Yanira Egfr >60 >60 40 Anion Gap 11 mmol/L 7-16 41 CBC With Auto Diff 08/21/2016 [facility] 4.8 K/uL 4.1-11.0 42 RBC 5.65 M/uL High 4.00-5.40 Hemoglobin 15.7 gm/dL 12.0-16.0 Hematocrit 46.9 % 36.0-47.0 MCV 83.0 fL 80.0-97.0 MCH 27.8 pg 27.0-32.0 MCHC 33.5 g/dL 32.0-36.0 RDW 14.5 % 11.5-14.5 PLT Count 305 K/ul 140-400 Neutrophil 59.5 % 35.0-75.0 Lymphocyte 27.6 % 16.0-52.0 Monocyte 7.0 % 2.0-10.0 Eosinophil 4.3 % 0.0-5.0 Basophil 1.6 % 0.0-4.0 Abs Neutrophils 2.9 K/uL 2.1-8.0 Abs Lymphocytes 1.3 K/uL 0.8-5.5 Abs Monocytes 0.3 K/uL 0.1-1.0 Abs Eosinophils 0.2 K/uL 0.0-0.5 Abs Basophils 0.1 K/uL 0.0-0.3 Laboratory test finding 08/21/2016 [facility] Hemoglobin A1c 5.7 % 4.1-6.5 Basic (BMP) 08/21/2016 [facility] Sodium 139 mmol/L 134-142 Potassium 4.4 mmol/L 3.5-5.2 Chloride 104 mmol/L 97-109 Carbon Dioxide 30 mmol/L 24-34 Glucose 104 mg/dL 70-105 BUN 20 mg/dL 6- Creatinine 0.9 mg/dL 0.5-1.4 Calcium 9.6 mg/dL 8.5-10.2 Anion Gap 9 mmol/L 6-14 Non Yanira Egfr 61 >60 43 Yanira Egfr >60 >60 44 Lipid Treatment 08/21/2016 [facility] Cholesterol 227 mg/dL High 50-199 Triglycerides 161 mg/dL High 30-150 HDL 61 mg/dL 45-85 45 Chol/ HDL Ratio 3.7 ratio 3.7-5.6 VLDL 32 mg/dL High 2-29 LDL (Calc) 134 mg/dL High 20-129 46 Alt 20 U/L 3-42 Ast 15 U/L 8-42 Lipid Treatment 01/18/2016 [facility] Cholesterol 194 mg/dL 50-199 47 Triglycerides 83 mg/dL 30-150 HDL 65 mg/dL 45-85 48 Chol/ HDL Ratio 3.0 ratio Low 3.7-5.6 VLDL 17 mg/dL 2-29 LDL (Calc) 112 mg/dL 20-129 49 Alt 18 U/L 3-42 Ast 16 U/L 8-42 Basic (BMP) 01/18/2016 [facility] Sodium 140 mmol/L 134-142 Potassium 4.2 mmol/L 3.5-5.2 Chloride 104 mmol/L 97-109 Carbon Dioxide 30 mmol/L 24-34 Glucose 86 mg/dL 70-105 BUN 19 mg/dL 6-26 Creatinine 0.8 mg/dL 0.5-1.4 Calcium 9.2 mg/dL 8.5-10.2 Anion Gap 10 mmol/L 6-14 Non Yanira Egfr >60 >60 50 Yanira Egfr >60 >60 51 Laboratory test finding 01/18/2016 [facility] Hemoglobin A1c 5.8 % 4.1-6.5 Lipid Treatment 06/12/2015 [facility] Cholesterol 235 mg/dL High 50-199 Triglycerides 197 mg/dL High 30-150 HDL 48 mg/dL 45-85 52 Chol/ HDL Ratio 4.9 ratio 3.7-5.6 VLDL 39 mg/dL High 2-29 LDL (Calc) 148 mg/dL High 20-129 53 Alt 23 U/L 3-42 Ast 18 U/L 8-42 Basic (BMP) 06/12/2015 [facility] Sodium 141 mmol/L 134-142 Potassium 4.1 mmol/L 3.5-5.2 Chloride 105 mmol/L 97-109 Carbon Dioxide 28 mmol/L 24-34 Glucose 99 mg/dL 70-105 BUN 14 mg/dL 6-26 Creatinine 0.9 mg/dL 0.5-1.4 Calcium 9.2 mg/dL 8.5-10.2 Anion Gap 12 mmol/L 6-14 Non Yanira Egfr >60 >60 54 Yanira Egfr >60 >60 55 Laboratory test 06/12/2015 [facility] Hemoglobin A1c 5.8 % 4.1-5.9 finding Laboratory test 12/19/2014 [facility] TSH 1.74 uIU/mL 0.34-5.60 finding Laboratory test 09/06/2014 N2N/CCD Import % A1c 5.8 % 4.1-6.5 finding Alt 26.0 U/L 9.0-52.0 Ast 23.0 U/L 14.0-36.0 BUN 24.0 mg/dL High 7.0-18.0 BUN/Creat Ratio 26.7 ratio High 12.0-20.0 Calcium 9.3 mg/dL 8.7-10.5 Chloride 106.0 mmol/L 98.0-107.0 Co2 26.0 mmol/L 22.0-30.0 Creatinine-Serum 0.9 mg/dL 0.7-1.2 Glucose 101.0 mg/dL 75.0-110.0 Magnesium 2.1 1.7-2.3 Potasium 3.9 mmol/L 3.6-5.0 Sodium 140.0 mmil/L 137.0-145.0 Vitamin D 28.7 ng/mL Low 30.0-100.0 eGFR 67.4 Lipid Panel 09/06/2014 [facility] [employer] Import Chol/HDL Ratio 2.7 ratio Cholesterol 155.0 mg/dL 50.0-199.0 HDL 57.0 mg/dL 45.0-86.0 LDL, Calculated 77.4 mg/dL 20.0-129.0 Triglycerides 103.0 mg/dL 30.0-150.0 vLDL 20.6 ng/dL Laboratory test 03/10/2014 [facility] [employer] [facility] Helicobacter <0.9 U/mL 0.0- 0.8 56 finding Pylori, Igg Laboratory test 03/03/2014 [facility] Import % A1c 5.7 % 4.1-6.5 finding Alt 26.0 U/L 9.0-52.0 Ast 21.0 U/L 14.0-36.0 BUN 21.0 mg/dL High 7.0-18.0 BUN/Creat Ratio 26.3 ratio High 12.0-20.0 Calcium 9.4 mg/dL 8.7-10.5 Chloride 106.0 mmol/L 98.0-107.0 Co2 28.0 mmol/L 22.0-30.0 Creatinine-Serum 0.8 mg/dL 0.7-1.2 Glucose 120.0 mg/dL High 75.0-110.0 Magnesium 2.1 1.7-2.3 Potasium 4.3 mmol/L 3.6-5.0 Sodium 143.0 mmil/L 137.0-145.0 Vitamin D 32.6 ng/mL 30.0-100.0 eGFR 77.2 Lipid Panel 03/03/2014 [facility] [facility] Chol/HDL Ratio 3.0 ratio Cholesterol 176.0 mg/dL 50.0-199.0 HDL 59.0 mg/dL 45.0-86.0 LDL, Calculated 96.4 mg/dL 20.0-129.0 Triglycerides 103.0 mg/dL 30.0-150.0 vLDL 20.6 ng/dL Laboratory test finding 09/02/2013 N2N/CCD Import % A1c 5.7 % 4.1-6.5 Alt 24.0 U/L 9.0-52.0 Ast 20.0 U/L 14.0-36.0 BUN 16.0 mg/dL 7.0-18.0 BUN/Creat Ratio 17.8 ratio 12.0-20.0 Calcium 9.4 mg/dL 8.7-10.5 Chloride 106.0 mmol/L 98.0-107.0 Co2 26.0 mmol/L 22.0-30.0 Creatinine-Serum 0.9 mg/dL 0.7-1.2 Glucose 112.0 mg/dL High 75.0-110.0 Potasium 4.1 mmol/L 3.6-5.0 Sodium 143.0 mmil/L 137.0-145.0 Vitamin D 33.4 ng/mL 30.0-100.0 eGFR 67.7 Lipid Panel 09/02/2013 N2N/CCD Import Chol/HDL Ratio 2.8 ratio Cholesterol 174.0 mg/dL 50.0-199.0 HDL 62.0 mg/dL 45.0-86.0 LDL, Calculated 81.6 mg/dL 20.0-100.0 Triglycerides 152.0 mg/dL High 30.0-150.0 vLDL 30.4 ng/dL Laboratory test finding 02/25/2013 N2N/CCD Import % A1c 5.5 % 4.1-6.5 Alt 26.0 U/L 9.0-52.0 Ast 20.0 U/L 14.0-36.0 BUN 16.0 mg/dL 7.0-18.0 BUN/Creat Ratio 17.8 ratio 12.0-20.0 Calcium 9.6 mg/dL 8.7-10.5 Chloride 107.0 mmol/L 98.0-107.0 Co2 26.0 mmol/L 22.0-30.0 Creatinine-Serum 0.9 mg/dL 0.7-1.2 Glucose 106.0 mg/dL 75.0-110.0 Magnesium 2.1 mg/dL 1.7-2.3 57 Potasium 4.2 mmol/L 3.6-5.0 Sodium 145.0 mmil/L 137.0-145.0 Vitamin D 29.4 ng/mL Low 30.0-100.0 eGFR 67.7 Lipid Panel 02/25/2013 [employer] Import Chol/HDL Ratio 2.7 ratio Cholesterol 160.0 mg/dL 50.0-199.0 HDL 60.0 mg/dL 45.0-86.0 LDL, Calculated 81.4 mg/dL 20.0-129.0 Triglycerides 93.0 mg/dL 30.0-150.0 vLDL 18.6 ng/dL Laboratory test finding 08/27/2012 [employer] Import Alt 41 U/L 9-52 58 Anion Gap 15 mmol/L 10-20 Ast 30 U/L 14-36 BUN 14 mg/dL 7-18 BUN/CR Ratio 16.7 Ratio 12-20 Calcium 9.4 mg/dL 8.7-10.5 Carbon Dioxide 28 mmol/L 22-30 Chloride 102 mmol/L 98-107 Creatinine, Serum 0.9 mg/dL 0.7-1.2 Glucose 97 mg/dL 65-105 Hemoglobin A1c 5.6 % 4.1-6.5 Magnesium 2.1 mg/dL 1.7-2.3 59 Potassium 4.2 mmol/L 3.6-5.0 Sodium 141 mmol/L 137-145 Vitamin D,25-Hydroxy 34.7 ng/mL 30.0-100.0 60 Lipid Panel 08/27/2012 [employer] Import Chol/HDL Ratio 2.2 61 Cholesterol 159 mg/dL 50-199 HDL Cholesterol 70 mg/dL 45-86 LDL 65 mg/dL 20-129 Triglycerides 122 mg/dL 30-150 VLDL Cholesterol 24 mg/dL Laboratory test finding 02/25/2012 [employer] Import Alt 39 U/L 9-52 Anion Gap 16 mmol/L 10-20 Ast 25 U/L 14-36 BUN 19 mg/dL High 7-18 BUN/CR Ratio 22.6 Ratio High 12-20 Calcium 9.1 mg/dL 8.7-10.5 Carbon Dioxide 27 mmol/L 22-30 Chloride 106 mmol/L 98-107 Creatinine, Serum 0.8 mg/dL 0.7-1.2 Glucose 128 mg/dL High 65-105 Hemoglobin A1c 5.7 % 4.1-6.5 Potassium 4.0 mmol/L 3.6-5.0 Sodium 145 mmol/L 137-145 Vitamin D,25-Hydroxy 25.3 ng/mL Low 30.0-100.0 62 Lipid Panel 02/25/2012 N2N/CCD Import Chol/HDL Ratio 2.2 63 Cholesterol 154 mg/dL 50-199 HDL Cholesterol 67 mg/dL 45-86 LDL 64 mg/dL 20-129 Triglycerides 116 mg/dL 30-150 VLDL Cholesterol 23 mg/dL Laboratory test finding 08/27/2011 N2N/CCD Import Alt 41 U/L 9-52 Anion Gap 10 mmol/L 10-20 Ast 24 U/L 14-36 BUN 18 mg/dL 7-18 BUN/CR Ratio 21.9 Ratio High 12-20 Calcium 9.1 mg/dL 8.7-10.5 Carbon Dioxide 31 mmol/L High 22-30 Chloride 106 mmol/L 98-107 Creatinine, Serum 0.8 mg/dL 0.7-1.2 Glucose 102 mg/dL 65-105 Hemoglobin A1c 6.0 % 4.1-6.5 Potassium 4.0 mmol/L 3.6-5.0 Sodium 144 mmol/L 137-145 Lipid Panel 08/27/2011 N2N/CCD Import Chol/HDL Ratio 2.3 64 Cholesterol 152 mg/dL 50-199 HDL Cholesterol 65 mg/dL 45-86 LDL 66 mg/dL 20-129 Triglycerides 106 mg/dL 30-150 VLDL Cholesterol 21 mg/dL Laboratory test finding 02/21/2011 [employer] Import Alt 30 U/L 9-52 65 Anion Gap 15 mmol/L 10-20 Ast 24 U/L 14-36 BUN 21 mg/dL High 7-18 BUN/CR Ratio 26.5 Ratio High 12-20 Calcium 9.0 mg/dL 8.7-10.5 Carbon Dioxide 27 mmol/L 22-30 Chloride 105 mmol/L 98-107 Creatinine, Serum 0.8 mg/dL 0.7-1.2 Glucose 97 mg/dL 65-105 Hemoglobin A1c 6.0 % 4.1-6.5 Potassium 4.4 mmol/L 3.6-5.0 Sodium 143 mmol/L 137-145 Lipid Panel 02/21/2011 N2N/CCD Import Chol/HDL Ratio 2.6 66 Cholesterol 173 mg/dL 50-199 HDL Cholesterol 66 mg/dL 45-86 LDL 87 mg/dL 20-129 Triglycerides 102 mg/dL 30-150 VLDL Cholesterol 20 mg/dL Laboratory test finding 08/24/2010 [employer] Import Alt 38 U/L 9-52 67 Anion Gap 12 mmol/L 10-20 Ast 25 U/L 14-36 BUN 19 mg/dL High 7-18 BUN/CR Ratio 22.4 Ratio High 12-20 Calcium 9.3 mg/dL 8.7-10.5 Carbon Dioxide 31 mmol/L High 22-30 Chloride 104 mmol/L 98-107 Creatinine, Serum 0.9 mg/dL 0.7-1.2 Glucose 117 mg/dL High 65-105 Hemoglobin A1c 5.8 % 4.1-6.5 Potassium 4.2 mmol/L 3.6-5.0 Sodium 142 mmol/L 137-145 Lipid Panel 08/24/2010 [employer] Import Chol/HDL Ratio 2.6 68 Cholesterol 167 mg/dL 50-199 HDL Cholesterol 63 mg/dL 45-86 LDL 76 mg/dL 20-129 Triglycerides 141 mg/dL 30-150 VLDL Cholesterol 28 mg/dL Laboratory test 08/24/2010 [employer] Import Vitamin 36.6 ng/mL 32.0-100.0 69 finding D,25-Hydroxy Laboratory test 02/21/2010 [employer] Import Absolute Basophils 0.120 K/ul 0.0-0.3 70 finding Absolute Eosinophils 0.294 K/ul 0.0-0.5 Absolute Lymphocytes 1.67 K/ul 0.8-4.8 Absolute Monocytes 0.402 K/ul 0.1-1.0 Absolute Neutrophils 2.73 K/ul 2.05-7.63 Alt 28 U/L 9-52 Anion Gap 12 mmol/L 10-20 Ast 25 U/L 14-36 BUN 17 mg/dL 7-18 BUN/CR Ratio 20.4 Ratio High 12-20 Basophil 2.3 % High 0-2 Calcium 9.2 mg/dL 8.7-10.5 Carbon Dioxide 30 mmol/L 22-30 Chloride 104 mmol/L 98-107 Creatinine, Serum 0.8 mg/dL 0.7-1.2 Eosinophil 5.6 % High 0-4 Glucose 111 mg/dL High 65-105 Hematocrit 41.4 % 37.0-51.0 Hemoglobin 14.4 GM/dl 12.0-16.0 Hemoglobin A1c 5.6 % 4.1-6.5 Lymphocytes 32.0 % 20-44 MCH 27.8 pg 26.0-32.0 MCHC 34.8 g/dL 31.0-36.0 MCV 80 FL 80-97 Monocytes 7.7 % 2-10.0 Neutrophils 52.4 % 50-70 Platelet Count 343 K/ul 140-440 Potassium 4.0 mmol/L 3.6-5.0 RBC 5.18 M/ul 4.2-6.3 RDW 12.9 % 11.5-14.5 Sodium 142 mmol/L 137-145 WBC 5.2 K/ul 4.1-10.9 Lipid Panel 02/21/2010 N2N/CCD Import Chol/HDL Ratio 4.0 71 Cholesterol 237 mg/dL High 50-199 HDL Cholesterol 59 mg/dL 45-86 LDL 135 mg/dL High 20-129 Triglycerides 215 mg/dL High 30-150 VLDL Cholesterol 43 mg/dL Laboratory test 08/17/2009 N2N/CCD Import Absolute 0.141 K/ul 0.0-0.3 finding Basophils Absolute Eosinophils 0.488 K/ul 0.0-0.5 Absolute Lymphocytes 1.74 K/ul 0.8-4.8 Absolute Monocytes 0.325 K/ul 0.1-1.0 Absolute Neutrophils 2.61 K/ul 2.05-7.63 Alt 30 U/L 9-52 Anion Gap 11 mmol/L 10-20 Ast 23 U/L 14-36 BUN 16 mg/dL 7-18 BUN/CR Ratio 17.8 Ratio 12-20 Basophil 2.7 % High 0-2 Calcium 9.6 mg/dL 8.7-10.5 Carbon Dioxide 34 mmol/L High 22-30 Chloride 103 mmol/L 98-107 Creatinine, Serum 0.9 mg/dL 0.7-1.2 Eosinophil 9.2 % High 0-4 Glucose 118 mg/dL High 65-105 Hematocrit 43.0 % 37.0-51.0 Hemoglobin 14.3 GM/dl 12.0-16.0 Lymphocytes 32.8 % 20-44 MCH 27.8 pg 26.0-32.0 MCHC 33.4 g/dL 31.0-36.0 MCV 83 FL 80-97 Monocytes 6.1 % 2-10.0 Neutrophils 49.2 % Low 50-70 Platelet Count 362 K/ul 140-440 Potassium 4.2 mmol/L 3.6-5.0 RBC 5.15 M/ul 4.2-6.3 RDW 14.1 % 11.5-14.5 Sodium 145 mmol/L 137-145 Vitamin D,25-Hydroxy 36.1 ng/mL 32.0-100.0 72 WBC 5.3 K/ul 4.1-10.9 Lipid Panel 08/17/2009 N2N/CCD Import Chol/HDL Ratio 3.2 73 Cholesterol 173 mg/dL 50-199 HDL Cholesterol 54 mg/dL 45-86 LDL 92 mg/dL 20-129 Triglycerides 135 mg/dL 30-150 VLDL Cholesterol 27 mg/dL Laboratory test 03/22/2009 N2N/CCD Import Cytology Pap See Note 74 finding Laboratory test 02/08/2009 N2N/CCD Import Absolute 0.100 K/ul 0.0-0.3 75 finding Basophils Absolute Eosinophils 0.297 K/ul 0.0-0.5 Absolute Lymphocytes 1.86 K/ul 0.8-4.8 Absolute Monocytes 0.430 K/ul 0.1-1.0 Absolute Neutrophils 2.35 K/ul 2.05-7.63 Alt 36 U/L 9-52 Anion Gap 11 mmol/L 10-20 Ast 26 U/L 14-36 BUN 18 mg/dL 7-18 BUN/CR Ratio 20.8 Ratio High 12-20 Basophil 2.0 % 0-2 Calcium 9.5 mg/dL 8.7-10.5 Carbon Dioxide 29 mmol/L 22-30 Chloride 104 mmol/L 98-107 Creatinine, Serum 0.8 mg/dL 0.7-1.2 Eosinophil 5.9 % High 0-4 Glucose 106 mg/dL High 65-105 Hematocrit 44.8 % 37.0-51.0 Hemoglobin 14.2 GM/dl 12.0-16.0 Lymphocytes 36.9 % 20-44 MCH 27.0 pg 26.0-32.0 MCHC 31.7 g/dL 31.0-36.0 MCV 85 FL 80-97 Monocytes 8.5 % 2-10.0 Neutrophils 46.7 % Low 50-70 Platelet Count 370 K/ul 140-440 Potassium 4.3 mmol/L 3.6-5.0 RBC 5.26 M/ul 4.2-6.3 RDW 13.0 % 11.5-14.5 Sodium 140 mmol/L 137-145 WBC 5.0 K/ul 4.1-10.9 Lipid Panel 02/08/2009 N2N/CCD Import Chol/HDL Ratio 3.4 76 Cholesterol 185 mg/dL 50-199 HDL Cholesterol 54 mg/dL 45-86 LDL 94 mg/dL 20-129 Triglycerides 184 mg/dL High 30-150 VLDL Cholesterol 37 mg/dL Laboratory test finding 08/25/2008 N2N/CCD Import Pathology Exam (See Note ) 77 Rapid Urease Negative Lipid Panel 07/20/2008 N2N/CCD Import Chol/HDL Ratio 3.3 78, 79 Cholesterol 202 mg/dL High 50-199 HDL Cholesterol 60 mg/dL 45-86 LDL 110 mg/dL 20-129 Triglycerides 158 mg/dL High 30-150 VLDL Cholesterol 32 mg/dL Laboratory test finding 07/20/2008 N2N/CCD Import Alt 33 U/L 9-52 Ast 24 U/L 14-36 Laboratory test 07/14/2008 N2N/CCD Import Pathology Exam (See Note) 80 finding Laboratory test 04/06/2008 N2N/CCD Import Surgical Pathology See Note 81 finding Laboratory test 03/11/2008 N2N/CCD Import Cytology Pap See Note 82 finding HPV See Note 83 Lipid Panel 02/15/2008 N2N/CCD Import Chol/HDL Ratio 3.9 84 Cholesterol 249 mg/dL High 50-199 HDL Cholesterol 63 mg/dL 45-86 LDL 154 mg/dL High 20-129 Triglycerides 161 mg/dL High 30-150 VLDL Cholesterol 32 mg/dL Laboratory test 02/15/2008 N2N/CCD Import Absolute Basophils 0.03 K/ul 0.0-0.3 finding Absolute Eosinophils 0.26 K/ul 0.0-0.5 Absolute Lymphocytes 2.07 K/ul 0.8-4.8 Absolute Monocytes 0.27 K/ul 0.1-1.0 Absolute Neutrophils 2.53 K/ul 2.05-7.63 Alt 27 U/L 9-52 Anion Gap 15 mmol/L 10-20 Ast 26 U/L 14-36 BUN 18 mg/dL 7-18 BUN/CR Ratio 19.9 Ratio 12-20 Basophil 0.6 % 0-2 Calcium 9.6 mg/dL 8.7-10.5 Carbon Dioxide 31 mmol/L High 22-30 Chloride 103 mmol/L 98-107 Creatinine, Serum 0.9 mg/dL 0.7-1.2 Eosinophil 5.0 % High 0-4 Glucose 88 mg/dL 65-105 Hematocrit 46.3 % 37.0-51.0 Hemoglobin 15.4 GM/dl 12.0-16.0 Lymphocytes 40.2 % 20-44 MCH 27.2 pg 26.0-32.0 MCHC 33.2 g/dL 31.0-36.0 MCV 82 FL 80-97 Monocytes 5.2 % 2-10.0 Neutrophils 49.0 % Low 50-70 Platelet Count 318 K/ul 140-440 Potassium 4.4 mmol/L 3.6-5.0 RBC 5.65 M/ul 4.2-6.3 RDW 12.6 % 11.5-14.5 Sodium 144 mmol/L 137-145 WBC 5.2 K/ul 4.1-10.9 Laboratory test finding 02/05/2006 N2N/CCD Import Pap Smear normal Lipid Panel 02/05/2006 N2N/CCD Import Cholesterol Total 183 Cholesterol/HDL Ratio 2.37 High Density Lipoprotein 77 Low Density Lipoprotein 85 Triglycerides 101 Laboratory test finding 08/21/2005 N2N/CCD Import Hematocrit 43.6 % 34.0 -46.0 Hemoglobin 15.0 gm/dL 11.5-15.5 Mean Cell Volume 81.0 fL 80.0-96.0 Mean Corpuscular HGB 27.8 pg 27.0-33.0 Mean Corpuscular HGB Conc 34.3 g/dL 31.7-36.0 Mean Platelet Volume 7.7 fl 6.6-10.6 Platelet Count 342 K/uL 150-400 Red Blood Count 5.39 M/uL High 3.90-5.20 Red Cell Distri Width %CV 14.3 % 11.6-15.8 White Blood Count 4.6 K/uL 3.4-10.5 1 Microbiology results SOURCE Clean Catch Midstream COLONY COUNT 75,000 FINAL RESULT Mixed organisms representing urethral yoan. No further workup. 2 Updated reference range on new analyzer 3 Updated reference range on new analyzer 4 Updated reference range 02-24-2019 5 Concerning GFR Guidelines for Americans: Normal function or mild renal disease, if clinically at risk: >/=60 mL/min Moderately decreased: 30-59 Severely decreased: 15-29 Renal failure: <15 There is reduced accuracy above 60ml/min/1.73 m squared, but the numeric value may be clinically useful in the near 60 range 6 Concerning GFR Guidelines: Normal function or mild renal disease, if clinically at risk: >/=60 mL/min Moderately decreased: 30-59 Severely decreased: 15-29 Renal failure: <15 There is reduced accuracy above 60ml/min/1.73 m squared, but the numeric value may be clinically useful in the near 60 range Glomerular Filtration Rate (GFR) is estimated based on the CKD-EPI equation, which assumes a steady state for creatinine as recommended by the National Kidney Disease Education Program in conjunction with the National Institutes of Health and the National Kidney Foundation. Clinical conditions in which it may be necessary to measure GFR by using clearance methods include extremes of age and body size, severe malnutrition or obesity, diseases of skeletal muscle, paraplegia or quadriplegia, vegetarian diet, rapidly changing kidney function, and calculation of the dose of potentially toxic drugs that are excreted by the kidneys. 7 Updated Reference Range 8 Per NCEP ATP III Guidelines: Results lower than 40 mg/dL are suggestive of increased risk for coronary artery disease. Results > or=to 60 mg/dL are considered a negative risk factor. 9 Per NCEP ATP III Guidelines: Normal Population <130 Patients with medical conditions: CHD/DM Optimal: <100 Borderline high: 130-159 High: 160-189 Very high: >189 10 Clinical Guidelines for recommended serum 25(OH)Vitamin D Deficient at less than 20 ng/mL Insufficient at 20 to <30 ng/mL Sufficient at 30-100 ng/mL Toxicity at greater than 100 ng/mL 11 to be done 1 week prior to Aug 2018 OV 12 S/CO Ratio >/=1.0 is REACTIVE. S/CO <5.0 is Low Reactive. S/CO >/= 5.0 is High Reactive. Effective Jun 20, 2017 all anti-HCV reactive samples are sent for quantitative PCR confirmation. 13 Per NCEP ATP III Guidelines: Results lower than 40 mg/dL are suggestive of increased risk for coronary artery disease. Results > or=to 60 mg/dL are considered a negative risk factor. 14 Per NCEP ATP III Guidelines: Normal Population <130 Patients with medical conditions: CHD/DM Optimal: <100 Borderline high: 130-159 High: 160-189 Very high: >189 15 Updated reference range on new analyzer 16 Updated reference range on new analyzer 17 Concerning GFR Guidelines: Normal function or mild renal disease, if clinically at risk: >/=60 mL/min Moderately decreased: 30-59 Severely decreased: 15-29 Renal failure: <15 Glomerular Filtration Rate (GFR) is estimated based on the MDRD equation, which assumes a steady state for creatinine as recommended by the National Kidney Disease Education Program in conjunction with the National Institutes of Health and the National Kidney Foundation. Clinical conditions in which it may be necessary to measure GFR by using clearance methods include extremes of age and body size, severe malnutrition or obesity, diseases of skeletal muscle, paraplegia or quadriplegia, vegetarian diet, rapidly changing kidney function, and calculation of the dose of potentially toxic drugs that are excreted by the kidneys. 18 Concerning GFR Guidelines for Americans: Normal function or mild renal disease, if clinically at risk: >/=60 mL/min Moderately decreased: 30-59 Severely decreased: 15-29 Renal failure: <15 19 Updated Reference Range 20 SCHEDULE 1 WEEK PRIOR TO NEXT VISIT 21 Per NCEP ATP III Guidelines: Results lower than 40 mg/dL are suggestive of increased risk for coronary artery disease. Results > or=to 60 mg/dL are considered a negative risk factor. 22 Per NCEP ATP III Guidelines: Normal Population <130 Patients with medical conditions: CHD/DM Optimal: <100 Borderline high: 130-159 High: 160-189 Very high: >189 23 Updated reference range on new analyzer 24 Updated reference range on new analyzer 25 Concerning GFR Guidelines: Normal function or mild renal disease, if clinically at risk: >/=60 mL/min Moderately decreased: 30-59 Severely decreased: 15-29 Renal failure: <15 Glomerular Filtration Rate (GFR) is estimated based on the MDRD equation, which assumes a steady state for creatinine as recommended by the National Kidney Disease Education Program in conjunction with the National Institutes of Health and the National Kidney Foundation. Clinical conditions in which it may be necessary to measure GFR by using clearance methods include extremes of age and body size, severe malnutrition or obesity, diseases of skeletal muscle, paraplegia or quadriplegia, vegetarian diet, rapidly changing kidney function, and calculation of the dose of potentially toxic drugs that are excreted by the kidneys. 26 Concerning GFR Guidelines for Americans: Normal function or mild renal disease, if clinically at risk: >/=60 mL/min Moderately decreased: 30-59 Severely decreased: 15-29 Renal failure: <15 27 Updated Reference Range 28 Per NCEP ATP III Guidelines: Results lower than 40 mg/dL are suggestive of increased risk for coronary artery disease. Results > or=to 60 mg/dL are considered a negative risk factor. 29 Per NCEP ATP III Guidelines: Normal Population <130 Patients with medical conditions: CHD/DM Optimal: <100 Borderline high: 130-159 High: 160-189 Very high: >189 30 Updated reference range on new analyzer 31 Updated reference range on new analyzer 32 Concerning GFR Guidelines: Normal function or mild renal disease, if clinically at risk: >/=60 mL/min Moderately decreased: 30-59 Severely decreased: 15-29 Renal failure: <15 Glomerular Filtration Rate (GFR) is estimated based on the MDRD equation, which assumes a steady state for creatinine as recommended by the National Kidney Disease Education Program in conjunction with the National Institutes of Health and the National Kidney Foundation. Clinical conditions in which it may be necessary to measure GFR by using clearance methods include extremes of age and body size, severe malnutrition or obesity, diseases of skeletal muscle, paraplegia or quadriplegia, vegetarian diet, rapidly changing kidney function, and calculation of the dose of potentially toxic drugs that are excreted by the kidneys. 33 Concerning GFR Guidelines for Americans: Normal function or mild renal disease, if clinically at risk: >/=60 mL/min Moderately decreased: 30-59 Severely decreased: 15-29 Renal failure: <15 34 Updated reference range on new analyzer 35 Per NCEP ATP III Guidelines: Results lower than 40 mg/dL are suggestive of increased risk for coronary artery disease. Results > or=to 60 mg/dL are considered a negative risk factor. 36 Per NCEP ATP III Guidelines: Normal Population <130 Patients with medical conditions: CHD/DM Optimal: <100 Borderline high: 130-159 High: 160-189 Very high: >189 37 Updated reference range on new analyzer 38 Updated reference range on new analyzer 39 Concerning GFR Guidelines: Normal function or mild renal disease, if clinically at risk: >/=60 mL/min Moderately decreased: 30-59 Severely decreased: 15-29 Renal failure: <15 Glomerular Filtration Rate (GFR) is estimated based on the MDRD equation, which assumes a steady state for creatinine as recommended by the National Kidney Disease Education Program in conjunction with the National Institutes of Health and the National Kidney Foundation. Clinical conditions in which it may be necessary to measure GFR by using clearance methods include extremes of age and body size, severe malnutrition or obesity, diseases of skeletal muscle, paraplegia or quadriplegia, vegetarian diet, rapidly changing kidney function, and calculation of the dose of potentially toxic drugs that are excreted by the kidneys. 40 Concerning GFR Guidelines for Americans: Normal function or mild renal disease, if clinically at risk: >/=60 mL/min Moderately decreased: 30-59 Severely decreased: 15-29 Renal failure: <15 41 Updated reference range on new analyzer 42 FAXED TO [facility] 07/05/16 SCHEDULE 1 WEEK PRIOR TO NEXT VISIT 43 Concerning GFR Guidelines: Normal function or mild renal disease, if clinically at risk: >/=60 mL/min Moderately decreased: 30-59 Severely decreased: 15-29 Renal failure: <15 Glomerular Filtration Rate (GFR) is estimated based on the MDRD equation, which assumes a steady state for creatinine as recommended by the National Kidney Disease Education Program in conjunction with the National Institutes of Health and the National Kidney Foundation. Clinical conditions in which it may be necessary to measure GFR by using clearance methods include extremes of age and body size, severe malnutrition or obesity, diseases of skeletal muscle, paraplegia or quadriplegia, vegetarian diet, rapidly changing kidney function, and calculation of the dose of potentially toxic drugs that are excreted by the kidneys. 44 Concerning GFR Guidelines for Americans: Normal function or mild renal disease, if clinically at risk: >/=60 mL/min Moderately decreased: 30-59 Severely decreased: 15-29 Renal failure: <15 45 Per NCEP ATP III Guidelines: Results lower than 40 mg/dL are suggestive of increased risk for coronary artery disease. Results > or=to 60 mg/dL are considered a negative risk factor. 46 Per NCEP ATP III Guidelines: Normal Population <130 Patients with medical conditions: CHD/DM Optimal: <100 Borderline high: 130-159 High: 160-189 Very high: >189 47 SCHEDULE 1 WEEK PRIOR TO NEXT VISIT 48 Per NCEP ATP III Guidelines: Results lower than 40 mg/dL are suggestive of increased risk for coronary artery disease. Results > or=to 60 mg/dL are considered a negative risk factor. 49 Per NCEP ATP III Guidelines: Normal Population <130 Patients with medical conditions: CHD/DM Optimal: <100 Borderline high: 130-159 High: 160-189 Very high: >189 50 Concerning GFR Guidelines: Normal function or mild renal disease, if clinically at risk: >/=60 mL/min Moderately decreased: 30-59 Severely decreased: 15-29 Renal failure: <15 Glomerular Filtration Rate (GFR) is estimated based on the MDRD equation, which assumes a steady state for creatinine as recommended by the National Kidney Disease Education Program in conjunction with the National Institutes of Health and the National Kidney Foundation. Clinical conditions in which it may be necessary to measure GFR by using clearance methods include extremes of age and body size, severe malnutrition or obesity, diseases of skeletal muscle, paraplegia or quadriplegia, vegetarian diet, rapidly changing kidney function, and calculation of the dose of potentially toxic drugs that are excreted by the kidneys. 51 Concerning GFR Guidelines for Americans: Normal function or mild renal disease, if clinically at risk: >/=60 mL/min Moderately decreased: 30-59 Severely decreased: 15-29 Renal failure: <15 52 Per NCEP ATP III Guidelines: Results lower than 40 mg/dL are suggestive of increased risk for coronary artery disease. Results > or=to 60 mg/dL are considered a negative risk factor. 53 Per NCEP ATP III Guidelines: Normal Population <130 Patients with medical conditions: CHD/DM Optimal: <100 Borderline high: 130-159 High: 160-189 Very high: >189 54 Concerning GFR Guidelines: Normal function or mild renal disease, if clinically at risk: >/=60 mL/min Moderately decreased: 30-59 Severely decreased: 15-29 Renal failure: <15 Glomerular Filtration Rate (GFR) is estimated based on the MDRD equation, which assumes a steady state for creatinine as recommended by the National Kidney Disease Education Program in conjunction with the National Institutes of Health and the National Kidney Foundation. Clinical conditions in which it may be necessary to measure GFR by using clearance methods include extremes of age and body size, severe malnutrition or obesity, diseases of skeletal muscle, paraplegia or quadriplegia, vegetarian diet, rapidly changing kidney function, and calculation of the dose of potentially toxic drugs that are excreted by the kidneys. 55 Concerning GFR Guidelines for Americans: Normal function or mild renal disease, if clinically at risk: >/=60 mL/min Moderately decreased: 30-59 Severely decreased: 15-29 Renal failure: <15 56 Negative <0.9 Indeterminate 0.9 - 1.0 Positive >1.0 Performed at: [address] [id number] Screen Making Technician: Mariia Singletary MD, Phone: [phone] 57 FASTING SCHEDULE 1 WEEK PRIOR TO NEXT VISIT 58 FASTING SCHEDULE 1 WEEK PRIOR TO NEXT VISIT 59 FASTING SCHEDULE 1 WEEK PRIOR TO NEXT VISIT 60 Vitamin D deficiency has been defined by the [place] of Medicine and an Endocrine Society practice guideline as a level of serum 25-OH vitamin D less than 20 ng/mL (1,2). The Endocrine Society went on to further define vitamin D insufficiency as a level between 21 and 29 ng/mL (2). 1. IOM ([place] of Medicine). 2010. Dietary reference intakes for calcium and D. [place]: The National Academies Press. 2. Yaya Chaves, Marisel MCCLOUD, et al. Evaluation, treatment, and prevention of vitamin D deficiency: an Endocrine Society clinical practice guideline. JCEM. 2010; 96(7):1911-30. Performed at: [address] [id number] Screen Making Technician: Mariia Singletary MD, Phone: [phone] 61 Normal Range: Male: <4.98 Female: <4.45 62 Vitamin D deficiency has been defined by the [place] of [employer] and an Endocrine Society practice guideline as a level of serum 25-OH vitamin D less than 20 ng/mL (1,2). The Endocrine Society went on to further define vitamin D insufficiency as a level between 21 and 29 ng/mL (2). 1. IOM ([place] [employer]). 2010. Dietary reference intakes for calcium and D. [place]: The National Academies Press. 2. Yaya Chaves, Marisel MCCLOUD, et al. Evaluation, treatment, and prevention of vitamin D deficiency: an Endocrine Society clinical practice guideline. JCEM. 2010; 96(7):1911-30. Performed at: [facility] [address] [id number] Screen Making Technician: Bossman Ivey MD, Phone: [phone] 63 Normal Range: Male: <4.98 Female: <4.45 64 Normal Range: Male: <4.98 Female: <4.45 65 FASTING BEFORE NEXT VISIT 66 Normal Range: Male: <4.98 Female: <4.45 67 FASTING SCHEDULE 1 -2 WEEKS PRIOR TO NEXT VISIT 68 Normal Range: Male: <4.98 Female: <4.45 69 Recent studies consider the lower limit of 32.0 ng/mL to be a threshold for optimal health. [facility]. J Nutr. 2004;135(2):317-22. Performed at: RN - [facility] [address] [id number] Screen Making Technician: Bossman Ivey MD, Phone: [phone] 70 FASTING 1 WEEK PRIOR TO NEXT VISIT 71 Normal Range: Male: <4.98 Female: <4.45 72 Recent studies consider the lower limit of 32.0 ng/mL to be a threshold for optimal health. [facility]. J Nutr. 2004;135(2):317-22. 73 Normal Range: Male: <4.98 Female: <4.45 74 Cytology [id number] [facility], [address] [place] [address] CYTOLOGY REPORT Name: Jolene Davis : 1950 (Age: 58) Sex: F Location: [facility] Soc. Sec. #: [id number] Date Collected: 03/22/2009 Billing #: [id number] Date Received: 03/22/2009 Requisition # [id number] Alternate #: [id number] Physician(s) : KELVIN VELAZQUEZ RPA Source of Specimen: ENDOCERVICAL/THIN PREP Clinical Information: Date of Last Menstrual Period: 1998 Menstrual History:Post menopausal: 2004 Dysplasia/Cancer History:ASC-US: 03/03 Specimen Adequacy: SATISFACTORY FOR EVALUATION. NO ENDOCERVICAL/TRANSFORMATION ZONE. General Categorization: NEGATIVE FOR INTRAEPITHELIAL LESION OR MALIGNANCY. muriel Electronic Signature MEJIA Sandoval (ASCP) Reported: 2008 Also seen by :MEJIA Poe (ASCP) Cytology [facility] ICD-9 Code(s) 795.01 75 FASTING 1-2WEEKS PRIOR TO OFFICE VISIT 76 Normal Range: Male: <4.98 Female: <4.45 77 OPERATION/PROCEDURE Colon.; EGD DIAGNOSIS: "GASTRIC POLYP": CHRONIC GASTRITIS WITH FEATURES CONSISTENT WITH "CHEMICAL INJURY" SUCH ALKALINE REFLUX. NO HELICOBACTER SEEN WITH SPECIAL STAIN. Danae T: 26/06 1213 GROSS "GASTRIC POLYP". The specimen is received in an appropriately labeled container. This contains four rounded overton pink colored pieces of soft tissue measuring up to 0.3 to 0.6 cm.; filtered and submitted in toto within a single cassette. Danae MICROSCOPIC Sections show glandular elongation, tortuosity, and hypercellularity of gastric pits, foveolar hyperplasia, and villiform transformation of the mucosa. The glands appear more angular than usual. Foveolar cells show mild mucin depletion and vacuolization. There is capillary congestion, vasodilatation and edema. Smooth muscle fibers extend high into the lamina propria. There are sparse amounts of chronic inflammatory cells. There are no Helicobacter-type bacteria identified with Warthin-Starry staining. The controls are adequate. PRE OPERATIVE DIAGNOSIS Bleed; GERD REVIEW CODE CODE: I ----- ANGIE Bradley MD 08/26/08 ----- 78 FASTING SCHEDULE FASTING 79 Normal Range: Male: <4.98 Female: <4.45 80 OPERATION/PROCEDURE Hysteroscopy; dilatation + curettage; polypectomy DIAGNOSIS: ENDOMETRIAL CURETTINGS : ENDOMETRIAL POLYP. Danae T : 07/15/08 1203 GROSS ENDOMETRIAL CURETTINGS . The specimen is received in an appropriately labeled container. This contains 0.3 mL of pink tissue admixed with mucus. Filtered and submitted in toto within a single cassette. GERMAN/wali MICROSCOPIC Sections show fragments of tissue composed of endometrial glands. The stroma is collagenized and fibrous. The glands are cystically dilated, occasionally branching lined by slightly stratified to single layer of columnar cells. The central portion has thick-walled coiled blood vessels. PRE OPERATIVE DIAGNOSIS Endometrial polyp REVIEW CODE CODE: I ----- ANGIE Bradley MD 07/15/08 ----- 81 [facility]ology [facility]reach, [address] [place] [address], [address] [place] [address] SURGICAL PATHOLOGY REPORT Name: Jolene Davis Pathology #: [id number] : 1950 (Age: 57) Sex: F Location: [facility] Soc. Sec. #: [id number] Date of Procedure: 04/06/2008 Billing #: [id number] Date Received: 04/06/2008 Requisition #: [id number] Alternate #: [id number] Physician(s): FAIZA MOMIN MD Specimen(s) Received: Endometrial biopsy Clinical Information: Endometrial cells on Pap in postmenopausal woman, abnormal Pap many years ago, last shows ASCUS HPV high risk negative with endometrial cells in woman over 50. 795.09. Gross Description: Specimen received in formalin labeled endometrial biopsy is 0.5 cc of irregular overton-brown fragments of soft tissue, clotted blood and mucus which is submitted in toto. (1 block). cf SXP/KBS Diagnosis: ENDOMETRIAL BIOPSY, FRAGMENTS OF ENDOMETRIAL POLYP AND INACTIVE ENDOMETRIAL TISSUE. Reported: 04/07/2008 Electronic Signature lr Dima Fermin MD ICD-9 Codes: 621.0 82 Cytology [id number] [facility], [address] [place] [address] CYTOLOGY REPORT Name: Jolene Davis : 1950 (Age: 57) Sex: F Location: [facility] Soc. Sec. #: [id number] Date Collected: 03/11/2008 Billing #: [id number] Date Received: 03/14/2008 Alternate #: [id number] Physician(s): TINO HEREDIA Source of Specimen: ENDOCERVICAL/ECTOCERVICAL THIN PREP Clinical Information : Date of Last Menstrual Period: 1998 Menstrual History:Post menopausal: 1998 Specimen Adequacy: SATISFACTORY FOR EVALUATION. ADEQUATE ENDOCERVICAL/TRANSFORMATION ZONE. General Categorization: SQUAMOUS ABNORMALITY Descriptive Evaluation: ATYPICAL SQUAMOUS CELLS OF UNDETERMINED SIGNIFICANCE (ASC-US). ENDOMETRIAL CELLS IN A WOMAN 50 YEARS OF AGE OR OLDER. bag Electronic Signature Aden Lindsay MD Reported: 03/17/2008 Also seen by: MEJIA Gutierrez (ASCP) [facility] ICD-9 Code(s) V72.31 795.01 A: 795.01 83 Special Testing [id number] [facility], [address] Phone [facility] [place] [facility] [place] [address] DIGENE HYBRID CAPTURE II HPV TEST Name: Jolene Davis : 1950 (Age: 57) Sex: F Location: [facility] Soc. Sec. #: [id number] Date Collected: 03/11/2008 Billing #: [id number] Date Received: 03/14/2008 Alternate #: [id number] Physician(s): TINO HEREDIA Source of Specimen: THIN PREP PAP Other Case Numbers: [id number] Results: Low RiskNEGATIVE (HPV types 6, 11, 42, 43, 44) High RiskNEGATIVE ( HPV types 16, 18, 31, 33, 35, 39, 45, 51, 52, 56, 58, 59, 68) Educational Note: Women with the cytologic diagnosis of Atypical Squamous Cells of Undetermined Significance (ASC-US) who test positive for high-risk, oncogenic HPV are at 10-20% risk of underlying SHAE 2 or higher lesions. Colposcopy is recommended in this situation. Women with ASC-US who test negative for high-risk, oncogenic HPV are at extremely low risk for underlying SHAE 2 or higher lesions. Repeat Pap smear at 12 months is recommended in this situation. Ref: [facility] [employer] [facility] 2001;93:293-299 JUSTIN 2002;287:8640-4654 Reported: 03/23/2008 Electronic Signature: Stacy Shirley MT for mtm Margarette Boston MT(ASCP), SM, SV Cytology [facility] ICD-9 Codes: A: 795.01 84 Normal Range: Male: <4.98 Female: <4.45 Procedures Date Code Description Status 03/12/2019 40206 Electrocardiogram Complete Completed 10/06/2018 185619159 Bone Mineral Density Test Completed 07/21/2018 63579 Electrocardiogram Complete Completed 05/26/2018 57779207 Colonoscopy Completed 05/21/2018 81291583 Mammogram Completed 10/16/2017 28273 Sono For AAA Screening Completed 10/16/2017 33083 Sono For AAA Screening Completed 09/09/2017 93793 Visual Screening Test Completed 08/28/2016 93216 Remove Impact Cerumen Irrigation/Lavage Completed 12/19/2014 80644 X-Ray Knee Complete W/Obliques & Tunnel And/Or Completed Standing Views 07/06/2014 52552 Mammography Unilateral Completed 04/14/2013 86386 Mammography Unilateral Completed 04/17/2011 03803 Mammography Unilateral Completed 08/25/2008 53771 Colonoscopy Flexible Diagnostic Completed 07/07/2008 43295 Spirometry /PFT W/O Bronchodialator Completed 04/06/2008 46979 Biopsy Endometrial/Endocervical Completed 03/11/2008 06222 Bone Density Study, Single Photon Absorptiometry Completed 03/11/2008 31252 Mammography Unilateral Completed 02/05/2006 06358 Mammography Unilateral Completed 08/21/2005 07183 Spirometry /PFT W/O Bronchodialator Completed 02/20/2005 14330 Spirometry /PFT W/O Bronchodialator Completed Encounters Type Date Location Provider Dx Diagnosis Office Visit 09/22/2018 [facility] Cristobal, Z00.00 Encntr for general 8:30a Kelvin, CLIENT CARE MANAGER adult medical exam w/o abnormal findings E78.2 Mixed hyperlipidemia K21.9 Gastro-esophageal reflux disease without esophagitis M15.0 Primary generalized (osteo)arthritis J30.9 Allergic rhinitis, unspecified J45.909 Unspecified asthma, uncomplicated R73.01 Impaired fasting glucose M85.80 Oth disrd of bone density and structure, unspecified site Z13.89 Encounter for screening for other disorder Z23 Encounter for immunization Z68.35 Body mass index (BMI) 35.0-35.9, adult Office Visit 07/21/2018 10:00a [facility] Cristobal, Z01.818 Encounter for other Kelvin, CLIENT CARE MANAGER preprocedural examination M15.0 Primary generalized (osteo)arthritis E78.2 Mixed hyperlipidemia K21.9 Gastro-esophageal reflux disease without esophagitis J30.9 Allergic rhinitis, unspecified J45.909 Unspecified asthma, uncomplicated R94.31 Abnormal electrocardiogram [ECG] [EKG] Z68.37 Body mass index (BMI) 37.0-37.9, adult Office Visit 03/09/2018 8:30a [facility] Kelvin Velazquez, E78.2 Mixed hyperlipidemia CLIENT CARE MANAGER K21.9 Gastro-esophageal reflux disease without esophagitis J45.909 Unspecified asthma, uncomplicated J30.9 Allergic rhinitis, unspecified M15.0 Primary generalized (osteo)arthritis R73.01 Impaired fasting glucose Z12.11 Encounter for screening for malignant neoplasm of colon Z12.31 Encntr screen mammogram for malignant neoplasm of breast Z11.59 Encounter for screening for other viral diseases Z68.38 Body mass index (BMI) 38.0-38.9, adult Office Visit 09/09/2017 11:15a [facility] Low Sanches DO Z00.00 Encntr for general adult medical exam w/o abnormal findings Z23 Encounter for immunization E78.2 Mixed hyperlipidemia R73.01 Impaired fasting glucose K21.9 Gastro-esophageal reflux disease without esophagitis J30.9 Allergic rhinitis, unspecified J45.20 Mild intermittent asthma, uncomplicated M15.0 Primary generalized (osteo)arthritis Z13.6 Encounter for screening for cardiovascular disorders Z68.38 Body mass index (BMI) 38.0-38.9, adult Office Visit 03/06/2017 3:15p [facility] Low Sanches DO E78.2 Mixed hyperlipidemia R73.01 Impaired fasting glucose K21.9 Gastro-esophageal reflux disease without esophagitis J30.9 Allergic rhinitis, unspecified J45.20 Mild intermittent asthma, uncomplicated M15.0 Primary generalized (osteo)arthritis Z12.31 Encntr screen mammogram for malignant neoplasm of breast Z68.36 Body mass index (BMI) 36.0-36.9, adult Office Visit 08/28/2016 9:45a [facility] Low Sanches DO E78.2 Mixed hyperlipidemia R73.01 Impaired fasting glucose K21.9 Gastro-esophageal reflux disease without esophagitis J30.9 Allergic rhinitis, unspecified J45.20 Mild intermittent asthma, uncomplicated M15.0 Primary generalized (osteo)arthritis H61.21 Impacted cerumen, RIGHT ear Office Visit 01/26/2016 8:15a [facility] Low Sanches DO E78.2 Mixed hyperlipidemia R73.01 Impaired fasting glucose K21.9 Gastro-esophageal reflux disease without esophagitis J30.9 Allergic rhinitis, unspecified J45.20 Mild intermittent asthma, uncomplicated E66.01 Morbid (severe) obesity due to excess calories M15.0 Primary generalized (osteo)arthritis Z12.31 Encntr screen mammogram for malignant neoplasm of breast Office Visit 06/19/2015 8:30a [facility] Low Sanches DO 272.2 Hyperlipidemia Mixed 790.21 Impaired Fasting Glucose 530.81 Esophageal Reflux 477.9 Rhinitis Allergic Cause Unspec 493.10 Asthma Intrinsic Unspecified 278.01 Obesity Morbid 715.00 Osteoarthrosis Generalized Site Unspec 535.40 Gastritis Other Spec W/O Hemorrhage Office Visit 12/19/2014 8:45a [facility] Low Sanches DO 272.2 Hyperlipidemia Mixed 530.81 Esophageal Reflux 477.9 Rhinitis Allergic Cause Unspec 493.10 Asthma Intrinsic Unspecified 278.01 Obesity Morbid 715.00 Osteoarthrosis Generalized Site Unspec 535.40 Gastritis Other Spec W/O Hemorrhage 790.21 Impaired Fasting Glucose Plan of Treatment Future Appointment(s):09/20/2019 7:45 am - Schedule, Laboratory at [facility]2018 9:00 am - Kelvin Velazquez, CLIENT CARE MANAGER at [facility]03/12/2019 - Kelvin Velazquez NPZ00.00 Encounter for general adult medical examination without abnoComments: Continue routine health maintenanceColonoscopy due 2027Tdap due 2026Mammo due April 2019Recommend Shingrix and annual flu vaccineFollow up:As scheduled in 818 Encounter for other preprocedural examinationComments:Continue with all meds up until surgery.Advised no ASA for 7 days prior to surgery or other NSAIDs 3-4 days prior to surgery.Take Pantoprazole on morning of surgery with sip of water and restart all other meds following surgery.E78.2 Mixed hyperlipidemiaNew Labs:Lipid Treatment, Scheduled: 09/20/19Basic (BMP), Scheduled: 09/20/19Comments:Continue to attempt low fat, low cholesterol diet.Increased weight bearing exercise to level of ability with history of arthritis will help to increase HDL(good) cholesterol. Continue Rosouvastatin in the evenings.Follow up:As scheduled, fasting lab 1 week dghrdY44.80 Other specified disorders of bone density and structure, unsComments:Continue Vitamin DContinue weight bearing exercise to level of mzdeqydY72.9 Gastro-esophageal reflux disease without esophagitisComments:Restart Pantoprazole dailyAvoid aggravating foodsWeight loss may help thisM15.0 Primary generalized (osteo) ycqdaprafR11.9 Allergic rhinitis, unspecifiedComments:Continue FpcasafxbijV05.909 Unspecified asthma, uncomplicatedComments:Continue Montelukast and as needed CcszlwviV59.01 Impaired fasting glucoseComments:Will follow annual A1C Limit concentrated sweets in diet.Conitnue increased exercise.E55.9 Vitamin D deficiency, unspecifiedComments:Continue supplement.Z13.31 Encounter for screening for wffmnqycroI37.35 Body mass index ( BMI) 35.0-35.9, adultComments:Recommend continued routine exercise and healthy well balanced diet with portion control
--- OUTSIDE RECORDS SUMMARY | 2019-04-01 05:34 | XMS REPORT | Continuity of Care Document ---
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 ETOH Use Occasionally consumes alcohol Tobacco Use Start: Unknown Patient has never smoked Smoking Status Reviewed: 09/22/18 Patient has never smoked Allergies, Adverse Reactions, Alerts Description No Known Drug Allergies Medications Active Medications SIG Qnty Indications Ordering Provider Date Rosuvastatin Calcium take 1 tablet by 90tabs E78.2 Digiovanna, 09/28/2017 5mg mouth every day Kelvin, [employer] Tablets in the evening Ventolin HFA 2 puffs every 4 8gm J45.20 Low Sanches, 09/09/2017 108(90Base) hours as needed DO mcg/Act Aerosol J45.909 Pantoprazole Sodium take 1 tablet by 90tabs K21.9 DigRina grossricia, 40mg mouth once a day [employer] Tablets Montelukast Sodium 1 po qd prn [...] # [id number] Given 10/13/2018 Flu Vaccine NOS 99022 Given 09/22/2018 Pneumococcal 23 Immunization Im inj completed, Pt [id number] Adult Or Immunosuppressed tolerated well Patient 66141 Given 09/09/2017 Prevnar 13 Pneumococal Im inj completed, Pt [id number] Conjugate Vaccine tolerated well 55696 Given 09/03/2011 Afluria Or Fluvirin Flu Vac Intramuscular 87545 Given 08/21/2005 Afluria Or Fluvirin Flu Vac Intramuscular 32947 Given 01/12/2003 Immunization Td 7 Yrs Or Older [id number] Refused 03/09/2018 Afluria Imunization Vital Signs Date Vital Result Comment 03/12/2019 8:38am Weight 186.56 lb Heart Rate 76 /min BP Systolic 128 mmHg BP Diastolic 80 mmHg Respiratory Rate 18 /min Height 60.5 inches 5'0.50" [facility] 03/12/19 BMI (Body Mass Index) 35.8 kg/m2 09/22/2018 8:33am Weight 179.44 lb Heart Rate 76 /min BP Systolic 124 mmHg BP Diastolic 78 mmHg Respiratory Rate 18 /min Height 59.75 inches 4'11.75" 09/22/18 [facility] BMI (Body Mass Index) 35.3 kg/m2 07/21/2018 10:04am Body Temperature 98.7 F tympanic Weight 189.44 lb Heart Rate 72 /min BP Systolic 120 mmHg BP Diastolic 78 mmHg Respiratory Rate 16 /min Height 60 inches 5'0" 07/21/18 [facility] BMI (Body Mass Index) 37.0 kg/m2 03/09/2018 [...] Date Facility Test Result H/L Range Note Laboratory test 03/12/2019 [facility] Urine Culture <pending> finding Laboratory test 03/12/2019 [facility] Hemoglobin A1c <pending> finding Basic (BMP) 03/12/2019 [facility] Sodium 143 mmol/L 135-146 1 Potassium 4.1 mmol/L 3.5-5.2 Chloride# 105 mmol/L 97-110 2 Carbon Dioxide 32 mmol/L 24-34 Glucose 84 mg/dL 70-105 BUN 17 mg/dL 6-26 Creatinine 0.8 mg/dL 0.5-1.4 Calcium 9.8 mg/dL 8.5-10.5 3 Female Egfr 72 >60 4 Male Egfr 90 >60 5 Anion Gap 6 mmol/L 5-15 6 Lipid Treatment 02/26/2019 [facility] Cholesterol 219 mg/dL High 50-199 Triglycerides 167 mg/dL 30-200 HDL 59 mg/dL 35-85 7 Chol/ HDL Ratio 3.7 ratio 3.7-5.6 VLDL 33 mg/dL High 2-29 LDL (Calc) 126 mg/dL High 20-99 8 Alt 19 U/L 3-42 Ast 18 U/L 8-42 Laboratory test 02/26/2019 [facility] Vitamin D 25 41 ng/mL 30-100 9 finding Hydroxy [facility] Non Reactive 10, 11 finding Virus Antibody S/[facility] Hemoglobin A1c 09/04/2018 [facility] Hemoglobin A1c 5.5 % 4.1-5.9 Estimated Average Glucose Calc 111 mg/dL 71-140 Lipid 09/04/2018 [facility] Cholesterol 163 mg/dL 50-199 Triglycerides 129 mg/dL 30-200 HDL 49 mg/dL 35-85 12 Chol/ HDL Ratio 3.3 ratio Low 3.7-5.6 VLDL 26 mg/dL 2-29 LDL (Calc) 88 mg/dL 20-99 13 Basic (BMP) 09/04/2018 [facility] Sodium 144 mmol/L 135-146 14 Potassium 4.0 mmol/L 3.5-5.2 Chloride# 105 mmol/L 97-110 15 Carbon Dioxide 30 mmol/L 24-34 Glucose 104 mg/dL 70-105 BUN 19 mg/dL 6-26 Creatinine 0.9 mg/dL 0.5-1.4 Calcium 9.2 mg/dL 8.5-10.2 Non Yanira Egfr >60 >60 16 Yanira Egfr >60 >60 17 Anion Gap 9 mmol/L 5-15 18 Lipid Treatment 03/02/2018 [facility] Cholesterol 175 mg/dL 50-199 19 Triglycerides 166 mg/dL 30-200 HDL 64 mg/dL 35-85 20 Chol/ HDL Ratio 2.7 ratio Low 3.7-5.6 VLDL 33 mg/dL High 2-29 LDL (Calc) 78 mg/dL 20-99 21 Alt 24 U/L 3-42 Ast 18 U/L 8-42 Basic (BMP) 03/02/2018 [facility] Sodium 144 mmol/L 135-146 22 Potassium 4.2 mmol/L 3.5-5.2 Chloride# 107 mmol/L 97-110 23 Carbon Dioxide 29 mmol/L 24-34 Glucose 105 mg/dL 70-105 BUN 21 mg/dL 6-26 Creatinine 0.9 mg/dL 0.5-1.4 Calcium 9.4 mg/dL 8.5-10.2 Non Yanira Egfr >60 >60 24 Yanira Egfr >60 >60 25 Anion Gap 8 mmol/L 5-15 26 Hemoglobin A1c 03/02/2018 [facility] Hemoglobin A1c 5.8 [...] mg/dL High 30-150 HDL 68 mg/dL 45-85 27 Chol/ HDL Ratio 3.2 ratio Low 3.7-5.6 VLDL 33 mg/dL High 2-29 LDL (Calc) 117 mg/dL 20-129 28 Alt 19 U/L 3-42 Ast 15 U/L 8-42 Basic (BMP) 09/02/2017 [facility] Sodium 145 mmol/L 135-146 29 Potassium 4.6 mmol/L 3.5-5.2 Chloride# 105 mmol/L 97-110 30 Carbon Dioxide 30 mmol/L 24-34 Glucose 100 mg/dL 70-105 Creatinine 1.0 mg/dL 0.5-1.4 Calcium 9.5 mg/dL 8.5-10.2 Non Yanira Egfr 57 Low >60 31 Yanira Egfr >60 >60 32 Anion Gap 10 mmol/L 7-16 33 BUN 24 mg/dL 6-26 Hemoglobin A1c 09/02/2017 [...] Magnesium 2.1 mg/dL 1.5-2.7 Lipid Treatment 02/18/2017 [facility] Cholesterol 170 mg/dL 50-199 Triglycerides 87 mg/dL 30-150 HDL 61 mg/dL 45-85 34 Chol/ HDL Ratio 2.8 ratio Low 3.7-5.6 VLDL 17 mg/dL 2-29 LDL (Calc) 92 mg/dL 20-99 35 Alt 19 U/L 3-42 Ast 15 U/L 8-42 Laboratory test finding 02/18/2017 [facility] Magnesium 1.9 mg/dL 1.5-2.7 CBC With Auto Diff 02/18/2017 [facility] WBC 4.3 K/uL 4.1-11.0 RBC 5.12 M/uL [...] Glucose Calc 117 71-140 Basic (BMP) 02/18/2017 [facility] Sodium 142 mmol/L 135-146 36 Potassium 4.2 mmol/L 3.5-5.2 Chloride# 107 mmol/L 97-110 37 Carbon Dioxide 28 mmol/L 24-34 Glucose 96 mg/dL 70-105 BUN 22 mg/dL 6-26 Creatinine 0.8 mg/dL 0.5-1.4 Calcium 9.2 mg/dL 8.5-10.2 Non Yanira Egfr >60 >60 38 Yanira Egfr >60 >60 39 Anion Gap 11 mmol/L 7-16 40 CBC With Auto Diff 08/21/2016 [facility] WBC 4.8 K/uL 4.1-11.0 41 RBC 5.65 M/uL High 4.00-5.40 Hemoglobin 15.7 [...] 0.1 K/uL 0.0-0.3 Laboratory test finding 08/21/2016 [facility] Hemoglobin A1c 5.7 % 4.1-6.5 Basic (BMP) 08/21/2016 [facility] Sodium 139 mmol/L 134-142 Potassium 4.4 mmol/L 3.5-5.2 Chloride 104 mmol/L 97-109 Carbon Dioxide 30 mmol/L 24-34 Glucose 104 mg/dL 70-105 BUN 20 mg/dL 6-26 Creatinine 0.9 mg/dL 0.5-1.4 Calcium 9.6 mg/dL 8.5-10.2 Anion Gap 9 mmol/L 6-14 Non Yanira Egfr 61 >60 42 Yanira Egfr >60 >60 43 Lipid Treatment 08/21/2016 [facility] Cholesterol 227 mg/dL High 50-199 Triglycerides 161 mg/dL High 30-150 HDL 61 mg/dL 45-85 44 Chol/ HDL Ratio 3.7 ratio 3.7-5.6 VLDL 32 mg/dL High 2-29 LDL (Calc) 134 mg/dL High 20-129 45 Alt 20 U/L 3- Ast 15 U/L 8- Lipid Treatment 01/18/2016 [facility] Cholesterol 194 mg/dL 50-199 46 Triglycerides 83 mg/dL 30-150 HDL 65 mg/dL 45-85 47 Chol/ HDL Ratio 3.0 ratio Low 3.7-5.6 VLDL 17 mg/dL 2-29 LDL (Calc) 112 mg/dL 20-129 48 Alt 18 U/L 3- Ast 16 U/L 8- Basic (BMP) 01/18/2016 [facility] Sodium 140 mmol/L 134-142 Potassium 4.2 mmol/L 3.5-5.2 Chloride 104 mmol/L 97-109 Carbon Dioxide 30 mmol/L 24-34 Glucose 86 mg/dL 70-105 BUN 19 mg/dL 6 Creatinine 0.8 mg/dL 0.5-1.4 Calcium 9.2 mg/dL 8.5-10.2 Anion Gap 10 mmol/L 6- Non Yanira Egfr >60 >60 49 Yanira Egfr >60 >60 50 Laboratory test finding 01/18/2016 [facility] Hemoglobin A1c 5.8 % 4.1-6.5 Lipid Treatment 06/12/2015 [facility] Cholesterol 235 mg/dL High 50-199 Triglycerides 197 mg/dL High 30-150 HDL 48 mg/dL 45-85 51 Chol/ HDL Ratio 4.9 ratio 3.7-5.6 VLDL 39 mg/dL High 2-29 LDL (Calc) 148 mg/dL High 20-129 52 Alt 23 U/L 3-42 Ast 18 U/L 8- Basic (BMP) 06/12/2015 [facility] Sodium 141 mmol/L 134-142 Potassium 4.1 mmol/L 3.5-5.2 Chloride 105 mmol/L 97-109 Carbon Dioxide 28 mmol/L 24-34 Glucose 99 mg/dL 70-105 BUN 14 mg/dL 6- Creatinine 0.9 mg/dL 0.5-1.4 Calcium 9.2 mg/dL 8.5-10.2 Anion Gap 12 mmol/L 6-14 Non Yanira Egfr >60 >60 53 Yanira Egfr >60 >60 54 Laboratory test 06/12/2015 [facility] Hemoglobin A1c 5.8 % 4.1-5.9 finding Laboratory [...] Low 30.0-100.0 eGFR 67.4 Lipid Panel 09/06/2014 N2N/CCD Import Chol/HDL Ratio 2.7 ratio Cholesterol 155.0 mg/dL 50.0-199.0 HDL 57.0 mg/dL 45.0-86.0 LDL, Calculated 77.4 mg/dL 20.0-129.0 Triglycerides 103.0 mg/dL 30.0-150.0 vLDL 20.6 ng/dL Laboratory test 03/10/2014 N2N/CCD Import Helicobacter <0.9 U/mL 0.0- 0.8 55 finding Pylori, Igg Laboratory test 03/03/2014 N2N/CCD Import % A1c 5.7 % 4.1-6.5 finding [...] ng/mL 30.0-100.0 eGFR 77.2 Lipid Panel 03/03/2014 N2N/CCD Import Chol/HDL Ratio 3.0 ratio Cholesterol 176.0 [...] 106.0 mg/dL 75.0-110.0 Magnesium 2.1 mg/dL 1.7-2.3 56 Potasium 4.2 mmol/L 3.6-5.0 Sodium 145.0 mmil/L 137.0-145.0 Vitamin D 29.4 ng/mL Low 30.0-100.0 eGFR 67.7 Lipid Panel 02/25/2013 N2N/CCD Import Chol/HDL Ratio 2.7 ratio Cholesterol 160.0 mg/dL 50.0-199.0 HDL 60.0 mg/dL 45.0-86.0 LDL, Calculated 81.4 mg/dL 20.0-129.0 Triglycerides 93.0 mg/dL 30.0-150.0 vLDL 18.6 ng/dL Laboratory test finding 08/27/2012 N2N/CCD Import Alt 41 U/L 9-52 57 Anion Gap 15 mmol/L 10-20 Ast 30 U/L 14-36 BUN 14 mg/dL 7-18 BUN/CR Ratio 16.7 Ratio 12-20 Calcium 9.4 mg/dL 8.7-10.5 Carbon Dioxide 28 mmol/L 22-30 Chloride 102 mmol/L 98-107 Creatinine, Serum 0.9 mg/dL 0.7-1.2 Glucose 97 mg/dL 65-105 Hemoglobin A1c 5.6 % 4.1-6.5 Magnesium 2.1 mg/dL 1.7-2.3 58 Potassium 4.2 mmol/L 3.6-5.0 Sodium 141 mmol/L 137-145 Vitamin D,25-Hydroxy 34.7 ng/mL 30.0-100.0 59 Lipid Panel 08/27/2012 N2N/Fliplife Import Chol/HDL Ratio 2.2 60 Cholesterol 159 mg/dL 50-199 HDL Cholesterol 70 mg/dL 45-86 LDL 65 mg/dL 20-129 Triglycerides 122 mg/dL 30-150 VLDL Cholesterol 24 mg/dL Laboratory test finding 02/25/2012 N2N/Fliplife Import Alt 39 U/L 9-52 Anion Gap [...] 137-145 Vitamin D,25-Hydroxy 25.3 ng/mL Low 30.0-100.0 61 Lipid Panel 02/25/2012 N2N/Fliplife Import Chol/HDL Ratio 2.2 62 Cholesterol 154 mg/dL 50-199 HDL Cholesterol 67 mg/dL 45-86 LDL 64 mg/dL 20-129 Triglycerides 116 mg/dL 30-150 VLDL Cholesterol 23 mg/dL Laboratory test finding 08/27/2011 N2N/Fliplife Import Alt 41 U/L 9-52 Anion Gap 10 mmol/L 10-20 Ast 24 U/L 14-36 BUN 18 mg/dL 7-18 BUN/CR Ratio 21.9 Ratio High 12-20 Calcium 9.1 mg/dL 8.7-10.5 Carbon Dioxide 31 mmol/L High 22-30 Chloride 106 mmol/L 98-107 Creatinine, Serum 0.8 mg/dL 0.7-1.2 Glucose 102 mg/dL 65-105 Hemoglobin A1c 6.0 % 4.1-6.5 Potassium 4.0 mmol/L 3.6-5.0 Sodium 144 mmol/L 137-145 Lipid Panel 08/27/2011 N2N/Fliplife Import Chol/HDL Ratio 2.3 63 Cholesterol 152 mg/dL 50-199 HDL Cholesterol 65 mg/dL 45-86 LDL 66 mg/dL 20-129 Triglycerides 106 mg/dL 30-150 VLDL Cholesterol 21 mg/dL Laboratory test finding 02/21/2011 N2N/Fliplife Import Alt 30 U/L 9-52 64 Anion Gap 15 mmol/L 10-20 Ast 24 U/L 14-36 BUN 21 mg/dL High 7-18 BUN/CR Ratio 26.5 Ratio High 12-20 Calcium 9.0 mg/dL 8.7-10.5 Carbon Dioxide 27 mmol/L 22-30 Chloride 105 mmol/L 98-107 Creatinine, Serum 0.8 mg/dL 0.7-1.2 Glucose 97 mg/dL 65-105 Hemoglobin A1c 6.0 % 4.1-6.5 Potassium 4.4 mmol/L 3.6-5.0 Sodium 143 mmol/L 137-145 Lipid Panel 02/21/2011 N2N/Fliplife Import Chol/HDL Ratio 2.6 65 Cholesterol 173 mg/dL 50-199 HDL Cholesterol 66 mg/dL 45-86 LDL 87 mg/dL 20-129 Triglycerides 102 mg/dL 30-150 VLDL Cholesterol 20 mg/dL Laboratory test finding 08/24/2010 N2N/Fliplife Import Alt 38 U/L 9-52 66 Anion Gap 12 mmol/L 10-20 Ast 25 U/L 14-36 BUN 19 mg/dL High 7-18 BUN/CR Ratio 22.4 Ratio High 12-20 Calcium 9.3 mg/dL 8.7-10.5 Carbon Dioxide 31 mmol/L High 22-30 Chloride 104 mmol/L 98-107 Creatinine, Serum 0.9 mg/dL 0.7-1.2 Glucose 117 mg/dL High 65-105 Hemoglobin A1c 5.8 % 4.1-6.5 Potassium 4.2 mmol/L 3.6-5.0 Sodium 142 mmol/L 137-145 Lipid Panel 08/24/2010 N2N/Fliplife Import Chol/HDL Ratio 2.6 67 Cholesterol 167 mg/dL 50-199 HDL Cholesterol 63 mg/dL 45-86 LDL 76 mg/dL 20-129 Triglycerides 141 mg/dL 30-150 VLDL Cholesterol 28 mg/dL Laboratory test 08/24/2010 OparaN/Fliplife Import Vitamin 36.6 ng/mL 32.0-100.0 68 finding D,25-Hydroxy Laboratory test 02/21/2010 N2N/CCD Import Absolute Basophils 0.120 K/ul 0.0-0.3 69 finding Absolute Eosinophils 0.294 K/ul 0.0-0.5 Absolute [...] Panel 02/21/2010 N2N/CCD Import Chol/HDL Ratio 4.0 70 Cholesterol 237 mg/dL High 50-199 HDL Cholesterol [...] mmol/L 137-145 Vitamin D,25-Hydroxy 36.1 ng/mL 32.0-100.0 71 WBC 5.3 K/ul 4.1-10.9 Lipid Panel 08/17/2009 N2N/CCD Import Chol/HDL Ratio 3.2 72 Cholesterol 173 mg/dL 50-199 HDL Cholesterol 54 mg/dL 45-86 LDL 92 mg/dL 20-129 Triglycerides 135 mg/dL 30-150 VLDL Cholesterol 27 mg/dL Laboratory test 03/22/2009 N2N/CCD Import Cytology Pap See Note 73 finding Laboratory test 02/08/2009 N2N/CCD Import Absolute 0.100 K/ul 0.0-0.3 74 finding Basophils Absolute Eosinophils 0.297 K/ul 0.0-0.5 [...] Panel 02/08/2009 N2N/CCD Import Chol/HDL Ratio 3.4 75 Cholesterol 185 mg/dL 50-199 HDL Cholesterol 54 mg/dL 45-86 LDL 94 mg/dL 20-129 Triglycerides 184 mg/dL High 30-150 VLDL Cholesterol 37 mg/dL Laboratory test finding 08/25/2008 N2N/CCD Import Pathology Exam (See Note ) 76 Rapid Urease Negative Lipid Panel 07/20/2008 N2N/CCD Import Chol/HDL Ratio 3.3 77, 78 Cholesterol 202 mg/dL High 50-199 HDL Cholesterol 60 mg/dL 45-86 LDL 110 mg/dL 20-129 Triglycerides 158 mg/dL High 30-150 VLDL Cholesterol 32 mg/dL Laboratory test finding 07/20/2008 N2N/CCD Import Alt 33 U/L 9-52 Ast 24 U/L 14-36 Laboratory test 07/14/2008 N2N/CCD Import Pathology Exam (See Note) 79 finding Laboratory test 04/06/2008 N2N/CCD Import Surgical Pathology See Note 80 finding Laboratory test 03/11/2008 N2N/CCD Import Cytology Pap See Note 81 finding HPV See Note 82 Lipid Panel 02/15/2008 N2N/CCD Import Chol/HDL Ratio 3.9 83 Cholesterol 249 mg/dL High 50-199 HDL Cholesterol 63 mg/dL 45-86 LDL 154 mg/dL High 20-129 Triglycerides 161 mg/dL High 30-150 VLDL Cholesterol 32 mg/dL Laboratory test 02/15/2008 N2N/Fliplife Import Absolute Basophils 0.03 K/ul 0.0-0.3 finding [...] 5.2 K/ul 4.1-10.9 Laboratory test finding 02/05/2006 N2N/Fliplife Import Pap Smear normal Lipid Panel 02/05/2006 OparaN/Fliplife Import Cholesterol Total 183 Cholesterol/HDL Ratio 2.37 High Density Lipoprotein 77 Low Density Lipoprotein 85 Triglycerides 101 Laboratory test finding 08/21/2005 N2N/Fliplife Import Hematocrit 43.6 % 34.0 -46.0 Hemoglobin 15.0 gm/dL 11.5-15.5 Mean Cell Volume 81.0 fL 80.0-96.0 Mean Corpuscular HGB 27.8 pg 27.0-33.0 Mean Corpuscular HGB Conc 34.3 g/dL 31.7-36.0 Mean Platelet Volume 7.7 fl 6.6-10.6 Platelet Count 342 K/uL 150-400 Red Blood Count 5.39 M/uL High 3.90-5.20 Red Cell Distri Width %CV 14.3 % 11.6-15.8 White Blood Count 4.6 K/uL 3.4-10.5 1 Updated reference range on new analyzer 2 Updated reference range on new analyzer 3 Updated reference range 02-24-2019 4 Concerning GFR Guidelines for Americans: Normal function or mild renal disease, if clinically at risk: >/=60 mL/min Moderately decreased: 30-59 Severely decreased: 15-29 Renal failure: <15 There is reduced accuracy above 60ml/min/1.73 m squared, but the numeric value may be clinically useful in the near 60 range 5 Concerning GFR Guidelines: Normal function or mild [...] drugs that are excreted by the kidneys. 6 Updated Reference Range 7 Per NCEP ATP III Guidelines: Results lower than 40 mg/dL are suggestive of increased risk for coronary artery disease. Results > or=to 60 mg/dL are considered a negative risk factor. 8 Per NCEP ATP III Guidelines: Normal Population <130 Patients with medical conditions: CHD/DM Optimal: <100 Borderline high: 130-159 High: 160-189 Very high: >189 9 Clinical Guidelines for recommended serum 25(OH)Vitamin D Deficient at less than 20 ng/mL Insufficient at 20 to <30 ng/mL Sufficient at 30-100 ng/mL Toxicity at greater than 100 ng/mL 10 to be done 1 week prior to Aug 2018 OV 11 S/CO Ratio >/=1.0 is REACTIVE. S/CO <5.0 is Low Reactive. S/CO >/= 5.0 is High Reactive. Effective Jun 20, 2017 all anti-HCV reactive samples are sent for quantitative PCR confirmation. 12 Per NCEP ATP III Guidelines: Results lower than 40 mg/dL are suggestive of increased risk for coronary artery disease. Results > or=to 60 mg/dL are considered a negative risk factor. 13 Per NCEP ATP III Guidelines: Normal Population <130 Patients with medical conditions: CHD/DM Optimal: <100 Borderline high: 130-159 High: 160-189 Very high: >189 14 Updated reference range on new analyzer 15 Updated reference range on new analyzer 16 Concerning GFR Guidelines: Normal function or mild [...] drugs that are excreted by the kidneys. 17 Concerning GFR Guidelines for Americans: Normal function or mild renal disease, if clinically at risk: >/=60 mL/min Moderately decreased: 30-59 Severely decreased: 15-29 Renal failure: <15 18 Updated Reference Range 19 SCHEDULE 1 WEEK PRIOR TO NEXT VISIT 20 Per NCEP ATP III Guidelines: Results lower than 40 mg/dL are suggestive of increased risk for coronary artery disease. Results > or=to 60 mg/dL are considered a negative risk factor. 21 Per NCEP ATP III Guidelines: Normal Population <130 Patients with medical conditions: CHD/DM Optimal: <100 Borderline high: 130-159 High: 160-189 Very high: >189 22 Updated reference range on new analyzer 23 Updated reference range on new analyzer 24 Concerning GFR Guidelines: Normal function or mild [...] drugs that are excreted by the kidneys. 25 Concerning GFR Guidelines for Americans: Normal function or mild renal disease, if clinically at risk: >/=60 mL/min Moderately decreased: 30-59 Severely decreased: 15-29 Renal failure: <15 26 Updated Reference Range 27 Per NCEP ATP III Guidelines: Results lower than 40 mg/dL are suggestive of increased risk for coronary artery disease. Results > or=to 60 mg/dL are considered a negative risk factor. 28 Per NCEP ATP III Guidelines: Normal Population <130 Patients with medical conditions: CHD/DM Optimal: <100 Borderline high: 130-159 High: 160-189 Very high: >189 29 Updated reference range on new analyzer 30 Updated reference range on new analyzer 31 Concerning GFR Guidelines: Normal function or mild [...] drugs that are excreted by the kidneys. 32 Concerning GFR Guidelines for Americans: Normal function or mild renal disease, if clinically at risk: >/=60 mL/min Moderately decreased: 30-59 Severely decreased: 15-29 Renal failure: <15 33 Updated reference range on new analyzer 34 Per NCEP ATP III Guidelines: Results lower than 40 mg/dL are suggestive of increased risk for coronary artery disease. Results > or=to 60 mg/dL are considered a negative risk factor. 35 Per NCEP ATP III Guidelines: Normal Population <130 Patients with medical conditions: CHD/DM Optimal: <100 Borderline high: 130-159 High: 160-189 Very high: >189 36 Updated reference range on new analyzer 37 Updated reference range on new analyzer 38 Concerning GFR Guidelines: Normal function or mild [...] drugs that are excreted by the kidneys. 39 Concerning GFR Guidelines for Americans: Normal function or mild renal disease, if clinically at risk: >/=60 mL/min Moderately decreased: 30-59 Severely decreased: 15-29 Renal failure: <15 40 Updated reference range on new analyzer 41 FAXED TO [facility] 07/05/16 SCHEDULE 1 WEEK PRIOR TO NEXT VISIT 42 Concerning GFR Guidelines: Normal function or mild [...] drugs that are excreted by the kidneys. 43 Concerning GFR Guidelines for Americans: Normal function or mild renal disease, if clinically at risk: >/=60 mL/min Moderately decreased: 30-59 Severely decreased: 15-29 Renal failure: <15 44 Per NCEP ATP III Guidelines: Results lower than 40 mg/dL are suggestive of increased risk for coronary artery disease. Results > or=to 60 mg/dL are considered a negative risk factor. 45 Per NCEP ATP III Guidelines: Normal Population <130 Patients with medical conditions: CHD/DM Optimal: <100 Borderline high: 130-159 High: 160-189 Very high: >189 46 SCHEDULE 1 WEEK PRIOR TO NEXT VISIT 47 Per NCEP ATP III Guidelines: Results lower than 40 mg/dL are suggestive of increased risk for coronary artery disease. Results > or=to 60 mg/dL are considered a negative risk factor. 48 Per NCEP ATP III Guidelines: Normal Population <130 Patients with medical conditions: CHD/DM Optimal: <100 Borderline high: 130-159 High: 160-189 Very high: >189 49 Concerning GFR Guidelines: Normal function or mild [...] drugs that are excreted by the kidneys. 50 Concerning GFR Guidelines for Americans: Normal function or mild renal disease, if clinically at risk: >/=60 mL/min Moderately decreased: 30-59 Severely decreased: 15-29 Renal failure: <15 51 Per NCEP ATP III Guidelines: Results lower than 40 mg/dL are suggestive of increased risk for coronary artery disease. Results > or=to 60 mg/dL are considered a negative risk factor. 52 Per NCEP ATP III Guidelines: Normal Population <130 Patients with medical conditions: CHD/DM Optimal: <100 Borderline high: 130-159 High: 160-189 Very high: >189 53 Concerning GFR Guidelines: Normal function or mild [...] drugs that are excreted by the kidneys. 54 Concerning GFR Guidelines for Americans: Normal function or mild renal disease, if clinically at risk: >/=60 mL/min Moderately decreased: 30-59 Severely decreased: 15-29 Renal failure: <15 55 Negative <0.9 Indeterminate 0.9 - 1.0 Positive >1.0 Performed at: [facility] [id number] Hand Folder: Mariia Singletary MD, Phone: [phone] FASTING SCHEDULE 1 WEEK PRIOR TO NEXT VISIT 57 FASTING SCHEDULE 1 WEEK PRIOR TO NEXT VISIT 58 FASTING SCHEDULE 1 WEEK PRIOR TO NEXT VISIT 59 Vitamin D deficiency has been defined by the [place] of [employer] and an Endocrine Society practice guideline as a level of serum 25-OH vitamin D less than 20 ng/mL (1,2). The Endocrine Society went on to further define vitamin D insufficiency as a level between 21 and 29 ng/mL (2). 1. IOM ([place] of [employer]). 2010. Dietary reference intakes for calcium and D. [place]: The National Academies Press. 2. Amina MF, Yaya NC, Marisel MCCLOUD, et al. Evaluation, treatment, and prevention of vitamin D deficiency: an Endocrine Society clinical practice guideline. JCEM. 2010; 96(7):1911-30. Performed at: [facility] [address] [id number] Hand Folder: Mariia Singletary MD, Phone: [phone] Normal Range: Male: <4.98 Female: <4.45 61 Vitamin D deficiency has been defined by the [place] [employer] and an Endocrine Society practice guideline as a level of serum 25-OH vitamin D less than 20 ng/mL (1,2). The Endocrine Society went on to further define vitamin D insufficiency as a level between 21 and 29 ng/mL (2). 1. IOM ([place] [employer]). 2010. Dietary reference intakes for calcium and D. [place]: The National Academies Press. 2. Amina MF, Yaya NC, Marisel MCCLOUD, et al. Evaluation, treatment, and prevention of vitamin D deficiency: an Endocrine Society clinical practice guideline. JCEM. 2010; 96(7):1911-30. Performed at: [facility] [employer] [id number] Hand Folder: Bossman Ivey MD, Phone: [phone] Normal Range: Male: <4.98 Female: <4.45 63 Normal Range: Male: <4.98 Female: <4.45 64 FASTING BEFORE NEXT VISIT 65 Normal Range: Male: <4.98 Female: <4.45 66 FASTING SCHEDULE 1 -2 WEEKS PRIOR TO NEXT VISIT 67 Normal Range: Male: <4.98 Female: <4.45 68 Recent studies consider the lower limit of 32.0 ng/mL to be a threshold for optimal health. Price BW. J Nutr. 2004;135(2):317-22. Performed at: [facility] [id number] Hand Folder: Bossman Ivey MD, Phone: [phone] 69 FASTING 1 WEEK PRIOR TO NEXT VISIT 70 Normal Range: Male: <4.98 Female: <4.45 71 Recent studies consider the lower limit of 32.0 ng/mL to be a threshold for optimal health. Price BW. J Nutr. 2004;135(2):317-22. 72 Normal Range: Male: <4.98 Female: <4.45 73 Cytology [id number] [facility], [address] [address] [place] [address] CYTOLOGY REPORT Name: Jolene Davis : 1950 (Age: 58) Sex: F Location: [facility] Soc. Sec. #: [id number] Date Collected: 03/22/2009 Billing #: [id number] Date Received: 03/22/2009 Requisition # [id number] Alternate #: [id number] Physician(s) : KELVIN VELAZQUEZ RPA Source of Specimen: ENDOCERVICAL/THIN PREP Clinical Information: Date of Last Menstrual Period: 1998 Menstrual History:Post menopausal: 2004 Dysplasia/Cancer History:ASC-US: 03/03 Specimen Adequacy: SATISFACTORY FOR EVALUATION. NO ENDOCERVICAL/TRANSFORMATION ZONE. General Categorization: NEGATIVE FOR INTRAEPITHELIAL LESION OR MALIGNANCY. muriel Electronic Signature MEJIA Sandoval (ASCP) Reported: 2008 Also seen by :MEJIA Poe (ASCP) [facility] ICD-9 Code(s) 795.01 74 FASTING 1-2WEEKS PRIOR TO OFFICE VISIT 75 Normal Range: Male: <4.98 Female: <4.45 76 OPERATION/PROCEDURE Colon.; EGD DIAGNOSIS: "GASTRIC POLYP": CHRONIC GASTRITIS WITH FEATURES CONSISTENT WITH "CHEMICAL INJURY" SUCH ALKALINE REFLUX. NO HELICOBACTER SEEN WITH SPECIAL STAIN. GERMAN/wali T: 26/06 1213 GROSS "GASTRIC POLYP". The specimen is received in an appropriately labeled container. This contains four rounded overton pink colored pieces of soft tissue measuring up to 0.3 to 0.6 cm.; filtered and submitted in toto within a single cassette. /wali MICROSCOPIC Sections show glandular elongation, tortuosity, and [...] I ----- ANGIE Bradley MD 08/26/08 ----- 77 FASTING SCHEDULE FASTING 78 Normal Range: Male: <4.98 Female: <4.45 79 OPERATION/PROCEDURE Hysteroscopy; dilatation + curettage; polypectomy DIAGNOSIS: ENDOMETRIAL CURETTINGS : ENDOMETRIAL POLYP. GERMAN/wali T : 07/15/08 1203 GROSS ENDOMETRIAL CURETTINGS [...] I ----- ANGIE Bradley MD 07/15/08 ----- 80 [facility] [facility], [address] [place] [address] SURGICAL PATHOLOGY REPORT Name: Jolene Davis Pathology #: [id number] : 1950 (Age: 57) Sex: F Location: [facility] Soc. Sec. #: [id number] Date of Procedure: 04/06/2008 Billing #: [id number] Date Received: 04/06/2008 Requisition #: [id number] Alternate #: [id number] Physician(s): FAIZA MOMIN MD Specimen(s) Received: Endometrial [...] lr Dima Fermin MD ICD-9 Codes: 621.0 81 [facility]ology [id number] [facility], [address] [place] [address] CYTOLOGY REPORT Name: Jolene Davis : 1950 (Age: 57) Sex: F Location: [facility] Soc. Sec. #: [id number] Date Collected: 03/11/2008 Billing #: [id number] Date Received: 03/14/2008 Alternate #: [id number] Physician(s): TINO HEREDIA Source of Specimen: ENDOCERVICAL/ECTOCERVICAL [...] seen by: MEJIA Gutierrez (ASCP) [facility] ICD-9 Code(s) V72.31 795.01 A: 795.01 82 Special Testing [id number] [place] [address], [address] [place] [address] DIGENE HYBRID CAPTURE II HPV TEST Name: Jolene Davis : 1950 (Age: 57) Sex: F Location: [facility] Soc. Sec. #: [id number] Date Collected: 03/11/2008 Billing #: [id number] Date Received: 03/14/2008 Alternate #: [id number] Physician(s): TINO HEREDIA Source of Specimen: THIN PREP PAP Other Case Numbers: [id number] Results: Low RiskNEGATIVE (HPV types 6, 11, [...] Ref: [employer] 2001;93:293-299 JUSTIN 2002;287:1472-8139 Reported: 03/23/2008 Electronic Signature: Stacy Shirley MT for mtm Margarette Boston MT(ASCP), SM, SV [facility] ICD-9 Codes: A: 795.01 83 Normal Range: Male: <4.98 Female: <4.45 Procedures Date Code Description Status 03/12/2019 18727 Electrocardiogram Complete Completed 10/06/2018 340053946 Bone Mineral Density Test Completed 07/21/2018 84693 Electrocardiogram Complete Completed 05/26/2018 02890961 Colonoscopy Completed 05/21/2018 47388863 Mammogram Completed 10/16/2017 86574 Sono For AAA Screening Completed 10/16/2017 76107 Sono For AAA Screening Completed 09/09/2017 87220 Visual Screening Test Completed 08/28/2016 55497 Remove Impact Cerumen Irrigation/Lavage Completed 12/19/2014 50022 X-Ray Knee Complete W/Obliques & Tunnel And/Or Completed Standing Views 07/06/2014 63328 Mammography Unilateral Completed 04/14/2013 88226 Mammography Unilateral Completed 04/17/2011 42241 Mammography Unilateral Completed 08/25/2008 83601 Colonoscopy Flexible Diagnostic Completed 07/07/2008 96496 Spirometry /PFT W/O Bronchodialator Completed 04/06/2008 43772 Biopsy Endometrial/Endocervical Completed 03/11/2008 82039 Bone Density Study, Single Photon Absorptiometry Completed 03/11/2008 16991 Mammography Unilateral Completed 02/05/2006 45120 Mammography Unilateral Completed 08/21/2005 72479 Spirometry /PFT W/O Bronchodialator Completed 02/20/2005 46339 Spirometry /PFT W/O Bronchodialator Completed Encounters Type Date Location Provider Dx Diagnosis Office Visit 09/22/2018 [facility] Cristobal, Z00.00 Encntr for general 8:30a Kelvin, [employer] adult medical exam w/o abnormal findings E78.2 Mixed hyperlipidemia K21.9 Gastro-esophageal reflux disease without esophagitis M15.0 Primary generalized (osteo)arthritis J30.9 Allergic rhinitis, unspecified J45.909 Unspecified asthma, uncomplicated R73.01 Impaired fasting glucose M85.80 Oth disrd of bone density and structure, unspecified site Z13.89 Encounter for screening for other disorder Z23 Encounter for immunization Z68.35 Body mass index (BMI) 35.0-35.9, adult Office Visit 07/21/2018 10:00a [facility] Cristobal, Z01.818 Encounter for other Kelvin, [employer] preprocedural examination M15.0 Primary generalized (osteo)arthritis E78.2 Mixed hyperlipidemia K21.9 Gastro-esophageal reflux disease without esophagitis J30.9 Allergic rhinitis, unspecified J45.909 Unspecified asthma, uncomplicated R94.31 Abnormal electrocardiogram [ECG] [EKG] Z68.37 Body mass index (BMI) 37.0-37.9, adult Office Visit 03/09/2018 8:30a [facility] Digio[employer]ody linaresia, E78.2 Mixed hyperlipidemia [employer] K21.9 Gastro-esophageal reflux disease without esophagitis J45.909 Unspecified asthma, uncomplicated J30.9 Allergic rhinitis, unspecified M15.0 Primary generalized (osteo)arthritis R73.01 Impaired fasting glucose Z12.11 Encounter for screening for malignant neoplasm of colon Z12.31 Encntr screen mammogram for malignant neoplasm of breast Z11.59 Encounter for screening for other viral diseases Z68.38 Body mass index (BMI) 38.0-38.9, adult Office Visit 09/09/2017 11:15a [facility] Low Sanches DO Z00.00 Encntr for general adult medical exam w/o abnormal findings Z23 Encounter for immunization E78.2 Mixed hyperlipidemia R73.01 Impaired fasting glucose K21.9 Gastro-esophageal reflux disease without esophagitis J30.9 Allergic rhinitis, unspecified J45.20 Mild intermittent asthma, uncomplicated M15.0 Primary generalized (osteo)arthritis Z13.6 Encounter for screening for cardiovascular disorders Z68.38 Body mass index (BMI) 38.0-38.9, adult Office Visit 03/06/2017 3:15p [facility] Low Sanches DO E78.2 Mixed hyperlipidemia R73.01 Impaired fasting glucose K21.9 Gastro-esophageal reflux disease without esophagitis J30.9 Allergic rhinitis, unspecified J45.20 Mild intermittent asthma, uncomplicated M15.0 Primary generalized (osteo)arthritis Z12.31 Encntr screen mammogram for malignant neoplasm of breast Z68.36 Body mass index (BMI) 36.0-36.9, adult Office Visit 08/28/2016 9:45a [facility] Low Sanches DO E78.2 Mixed hyperlipidemia R73.01 Impaired fasting glucose K21.9 Gastro-esophageal reflux disease without esophagitis J30.9 Allergic rhinitis, unspecified J45.20 Mild intermittent asthma, uncomplicated M15.0 Primary generalized (osteo)arthritis H61.21 Impacted cerumen, RIGHT ear Office Visit 01/26/2016 8:15a [facility] Low Sanches DO E78.2 Mixed hyperlipidemia R73.01 Impaired fasting glucose K21.9 Gastro-esophageal reflux disease without esophagitis J30.9 Allergic rhinitis, unspecified J45.20 Mild intermittent asthma, uncomplicated E66.01 Morbid (severe) obesity due to excess calories M15.0 Primary generalized (osteo)arthritis Z12.31 Encntr screen mammogram for malignant neoplasm of breast Office Visit 06/19/2015 8:30a [facility] Low Sanches DO 272.2 Hyperlipidemia Mixed 790.21 Impaired Fasting Glucose 530.81 Esophageal Reflux 477.9 Rhinitis Allergic Cause Unspec 493.10 Asthma Intrinsic Unspecified 278.01 Obesity Morbid 715.00 Osteoarthrosis Generalized Site Unspec 535.40 Gastritis Other Spec W/O Hemorrhage Office Visit 12/19/2014 8:45a [facility] Low Sanches DO 272.2 Hyperlipidemia Mixed 530.81 Esophageal Reflux 477.9 Rhinitis Allergic Cause Unspec 493.10 Asthma Intrinsic Unspecified 278.01 Obesity Morbid 715.00 Osteoarthrosis Generalized Site Unspec 535.40 Gastritis Other Spec W/O Hemorrhage 790.21 Impaired Fasting Glucose Plan of Treatment Future Appointment(s):09/20/2019 7:45 am - Schedule, Laboratory at [facility]2018 9:00 am - Kelvin Velazquez NP at [facility]03/12/2019 - Kelvin Velazquez , SOLEZ00.00 Encounter for general adult medical examination without abnoComments: Continue routine health maintenanceColonoscopy due 2027Tdap due 2026Mammo due April 2019Recommend Shingrix and annual flu vaccineFollow up:As scheduled in DecZ01.818 Encounter for other preprocedural examinationComments:Continue with all [...] evenings.Follow up:As scheduled, fasting lab 1 week ndizwF84.80 Other specified disorders of bone density and structure, unsComments:Continue Vitamin DContinue weight bearing exercise to level of zusetdrY62.9 Gastro-esophageal reflux disease without esophagitisComments:Restart Pantoprazole dailyAvoid aggravating foodsWeight loss may help thisM15.0 Primary generalized (osteo) rjunaxdozN11.9 Allergic rhinitis, unspecifiedComments:Continue ZteaprvfbwtN82.909 Unspecified asthma, uncomplicatedComments:Continue Montelukast and as needed YwrvvqmqW95.01 Impaired fasting glucoseComments:Will follow annual A1C Limit concentrated sweets in diet.Conitnue increased exercise.E55.9 Vitamin D deficiency, unspecifiedComments:Continue supplement.Z68.35 Body mass index (BMI) 35.0-35.9, adultComments:Recommend continued routine exercise and healthy well balanced diet with portion control
[2019-04-01] MEDS ORDERED: Lactated Ringers 1000 ML Bag* 1,000 ML IV SCH (06:00)
[2019-04-01] MEDS ORDERED: celeCOXIB CAP* 200 MG PO ONE (06:00)
[2019-04-01] MEDS ORDERED: Dexamethasone IV* 4 MG/ML 1 ML (4 MG) ONE (06:00)
[2019-04-01] MEDS ORDERED: Gabapentin CAP(*) 300 MG PO ONE (06:00)
[2019-04-01] MEDS ORDERED: Famotidine TAB* 20 MG PO ONE (06:00)
[2019-04-01] MEDS ORDERED: Dexamethasone IV* 4 MG/ML 1 ML (4 MG) IV SLOW PU ONE (06:00)
[2019-04-01] MEDS ORDERED: Gabapentin CAP(*) 300 MG ONE (06:00)
[2019-04-01] MEDS ORDERED: Acetaminophen TAB* 325 MG PO ONE (06:00)
[2019-04-01] MEDS ORDERED: Acetaminophen TAB* 325 MG ONE (06:01)
[2019-04-01] MEDS ORDERED: ceFAZolin 2 GM PREMIX in ORs 2 GM/50 ML BAG ONE (06:01)
[2019-04-01] MEDS ORDERED: Buffered Lidocaine 1% SYRIN* 1 ML/SYRINGE INTRADERM ONE (06:01)
[2019-04-01] MEDS ORDERED: celeCOXIB CAP* 200 MG ONE (06:01)
[2019-04-01] MEDS ORDERED: Famotidine IV* 10 MG/ML 2 ML (20 mg) ONE (06:02)
[2019-04-01] MEDS ORDERED: ROPIVACAINE 5 MG/ML 30 ML BTL (0.5%) ONE ×2 (06:47→07:09)
[2019-04-01] MEDS ORDERED: fentaNYL* 50 MCG/ML 2 ML VIAL (100 MCG VIAL) ONE (07:09)
[2019-04-01] MEDS ORDERED: Midazolam* 1 MG/ML 2 ML VIAL (2 MG) ONE (07:09)
[2019-04-01] MEDS ORDERED: Lidocaine 1%* 5 ML VIAL ONE (07:09)
[2019-04-01] MEDS ORDERED: Propofol* 10 MG/ML 20 ML BTL ONE (07:10)
[2019-04-01] MEDS ORDERED: KETAMINE HCL* 50 MG/ML 10 ML VIAL ONE (07:48)
[2019-04-01] MEDS ORDERED: Propofol* 500 MG/50 ML BTL ONE (08:12)
[2019-04-01] MEDS ORDERED: HYDROmorphone INJ1* 1 MG/ML SYRINGE IV PRN (08:36)
[2019-04-01] MEDS ORDERED: DiMENhydriNATE IV* 50 MG/ML VIAL IV PUSH PRN (08:36)
[2019-04-01] MEDS ORDERED: oxyCODONE TAB* 5 MG TAB PO PRN (08:36)
[2019-04-01] MEDS ORDERED: fentaNYL* 50 MCG/ML 2 ML VIAL (100 MCG VIAL) IV PRN (08:36)
[2019-04-01] MEDS ORDERED: Ketorolac INJ* 30 MG/ML 1 ML VIAL IV PRN (08:36)
[2019-04-01] MEDS ORDERED: Naloxone* 0.4 MG/ML 1 ML VIAL IV PRN (08:36)
[2019-04-01] MEDS ORDERED: Acetaminophen IV 1GM/100ML * 1,000 MG/100 ML VIAL IVPB ONE (08:36)
[2019-04-01] MEDS ORDERED: Ondansetron INJ* 2 MG/ML VIAL IV PRN (08:36)
[2019-04-01] MEDS ORDERED: Ondansetron TAB* 4 MG PO PRN (09:56)
[2019-04-01] MEDS ORDERED: Morphine 4 MG/ML VIAL (1 ml) 4 MG/ML VIAL IV PRN (09:56)
[2019-04-01] MEDS ORDERED: Cyclobenzaprine TAB* 10 MG PO PRN (09:56)
[2019-04-01] MEDS ORDERED: diPHENhydraMINE IV* 50 MG/ML 1 ml VIAL (BENADRYL) IV PRN (09:56)
[2019-04-01] MEDS ORDERED: Bisacodyl SUPP* 10 MG SUPP PR PRN (09:56)
[2019-04-01] MEDS ORDERED: Magnesium Hydroxide LIQ* 30 ML UDC PO PRN (09:56)
[2019-04-01] MEDS ORDERED: Polyethylene Glycol 3350* 17 GM PACKET PO PRN (09:56)
[2019-04-01] MEDS ORDERED: traMADol TAB* 50 MG PO PRN (09:56)
[2019-04-01] MEDS ORDERED: Acetaminophen TAB* 325 MG PO SCH (10:00)
[2019-04-01] MEDS ORDERED: Albuterol HFA INHALER* 8 gm MDI INH PRN (10:01)
[2019-04-01] MEDS: Lactated Ringers 1000 ML Bag* 1,000 ML IV SCH ×2 (11:00→19:37)
--- NOTE | 2019-04-01 13:10 | PN ---
Progress Note - Progress Note Date of Service: 04/01/19 Note: Patient seen at bedside s/p LTK today. She is doing well, denies knee pain. Feeling well. +DF left ankle, sensation intact distally.
[2019-04-01] MEDS: oxyCODONE/Acetamin 5/325 MG* TAB PO PRN ×4 (13:21→23:31)
[2019-04-01] MEDS: Acetaminophen TAB* 325 MG PO SCH ×2 (14:40→22:52)
--- NOTE | 2019-04-01 14:44 | OP ---
Operative Report - Blank - Operative Report Date of Operation: 04/01/19 Note: RIDGE CASTORENA 1950 Date of Surgery: 04/01/19 Sadia Parada MD Tip Inserter: Brii HEREDIA did help throughout the procedure with preparation of the knee, wound retraction, manipulation of the knee, and wound closure. Anesthesiologist: Tal Betts MD Anesthesia Type: Spinal Preoperative Diagnosis: Left severe degenerative osteoarthritis of the knee Postoperative Diagnosis: As above Procedure Performed: Left Total Knee Arthroplasty Tourniquet time: 46 minutes Complications: None Specimen: Bone and cartilage from the left knee joint sent to pathology. Hardware Used: Cemented [employer] Nephew total knee hardware was used - For the femur a size 4 left narrow oxinium legion posterior stabilized femoral component , for the tibia a size 3 left myra II tibial baseplate, for the insert a size 9mm 3-4 posterior stabilized articular polyethylene insert, and for the patella a size 32 3-peg all poly patella. Brief History/Indication: RIDGE CASTORENA was known in clinic and had a history of severe left knee pain and swelling. She failed conservative treatment with anti-inflammatories, pain pills, intra-articular injections and physical therapy. She elected to undergo left total knee arthroplasty due to continued pain and decreased quality of life. Radiographs showed severe end stage osteoarthritis of the knee with bone on bone contact. Informed consent was obtained from the patient. She understood the risks of surgery included but were not limited to: bleeding, infection, damage to nearby structures, intraoperative fracture, nerve palsy, failure of the hardware, early loosening, knee stiffness or loss of motion, anesthesia complications, stroke, heart attack , blood clot and . She wished to proceed. Intra-Operative Findings: Intraoperatively the patient was noted to have severe loss of cartilage in all 3 compartments of the knee. Description of the Procedure: RIDGE CASTORENA was identified in the preanesthesia unit. Her left knee was marked as the correct operative side. Informed consent was signed and placed in the chart. The patient was taken to the operating room and placed under anesthesia without complication. A pardo catheter was placed. A tourniquet was placed on the left thigh. The left lower extremity was prepped and draped in the usual sterile fashion. Preoperative time-out was made to correctly identify the patient, side and site. Appropriate intraoperative antibiotics were given within one hour of incision. Tourniquet was inflated. A midline incision was made and carried sharply down to the extensor mechanism. A new 10 blade was used to make a standard medial parapatellar arthrotomy. The patella was subluxed laterally. Electrocautery was used to dissect soft tissue off the superomedial tibia to the midsagittal plane. The knee was flexed up. The anterior horn of the lateral meniscus and the ACL were sharply incised. A drill was used to enter the distal femur. The intramedullary distal femoral cutting guide was pinned on the distal femur. The oscillating saw was used to make the distal femoral cut. The external rotation guide was pinned on the distal femur and the distal femur was sized to a size 4. The size 4 multi-cutting jig was pinned on the distal femur. The oscillating saw was used to make the appropriate 4 chamfer cuts. Next the PCL was completely released. The extramedullary tibial cutting guide was pinned on the proximal tibia and the oscillating saw was used to make the proximal tibial cut perpendicular to the mechanical axis of the tibia. The bone was carefully removed. The knee was brought out into full extension. The spacer block was placed and had excellent fit with the knee in full extension. The medial and lateral ligaments were well balanced. The flexion and extension gaps were well balanced. The knee was flexed up. Lamina bag washer was placed both medially and laterally. Any remaining meniscus was removed with electrocautery. Curved osteotome was used to remove any posterior osteophytes. The tibial tray and drop jax were placed and confirmed a satisfactory tibial cut. The size 4 left narrow femoral trial was impacted onto the distal femur. This trial had excellent fit and stability. The box for the posterior stabilized implant was prepared using a box cut osteotome and a reamer. Next a tibial tray trial and 9 mm insert trial was placed. The knee was taken through a range of motion and had full extension to 130 degrees of flexion. Patellofemoral tracking was satisfactory. The patella was inverted and sized to a size 32. Three peg holes were drilled through the size 32 drill guide. The trial patella was placed and the knee was taken through a range of motion. There was satisfactory patellofemoral tracking. All trials were removed. The tibia was subluxed anteriorly and sized to a size 3. The proximal tibial was prepared with a size 3 keel punch. All bony cut surfaces were irrigated with sterile saline and dried. Final implants were cemented into place starting with the tibia, followed by the femur, and last the patella. A 9 mm insert trial was placed and the knee was brought into full extension. Tourniquet was turned down and the knee was copiously irrigated with sterile saline. Electrocautery was used to obtain meticulous hemostasis. Once the cement had fully cured, the insert trial was removed. Any excess cement was removed from around the hardware and capsule. Final insert chosen was a 9 mm posterior stabilized Myra II articular insert size 3-4. Stability of the insert was checked and noted to be stable. The extensor mechanism was closed using number 1 vicryls. The rest of the incision was closed in a layered fashion using 0 and 2-0 vicryls. The skin was closed using 3-0 nylon suture. Sterile xeroform, 4x4s and webril were used to cover the incision. Grover wrap and cold pack were used to cover the dressings. The patients anesthesia was reversed without difficulty. She was taken to the PACU in stable condition. Intended weight-bearing will be as tolerated.
[2019-04-01] MEDS: oxyCODONE TAB* 5 MG TAB PO PRN ×2 (15:06→19:30)
[2019-04-01] MEDS: ceFAZolin 1 GM ADVAN(*) 1 GM in NS 0.9% 50 ML* 50 ML IVPB SCH ×2 (16:20→23:30)
[2019-04-01] MEDS ORDERED: Atorvastatin* 10 MG TAB PO SCH (18:00)
[2019-04-01] MEDS: Docusate CAP* 100 MG PO SCH (19:32)
[2019-04-01] MEDS: Magnesium Hydroxide LIQ* 30 ML UDC PO SCH (19:49)
[2019-04-02] MEDS: oxyCODONE TAB* 5 MG TAB PO PRN (02:05)
[2019-04-02] MEDS: oxyCODONE/Acetamin 5/325 MG* TAB PO PRN (05:13)
[2019-04-02] MEDS: Acetaminophen TAB* 325 MG PO SCH (06:13)
[2019-04-02 06:14] LABS: Hematocrit 38 % (35-47); Hemoglobin 12.4 g/dL (12.0-16.0); Mean Platelet Volume 7.7 fL (7.4-10.4); Platelet Count 233 10^3/uL (150-450)
[2019-04-02 06:17] LABS: Calcium 9.1 mg/dL (8.6-10.3); Potassium 4.3 mmol/L (3.5-5.0)
[2019-04-02] MEDS: Lactated Ringers 1000 ML Bag* 1,000 ML IV SCH (06:18)
[2019-04-02 06:23] LABS: BUN/Creatinine Ratio 17.1 (8-20); EGFR African American 84.1 (>60); EGFR Non-African American 69.5 (>60)
[2019-04-02] MEDS: ceFAZolin 1 GM ADVAN(*) 1 GM in NS 0.9% 50 ML* 50 ML IVPB SCH (08:18)
[2019-04-02] MEDS: Docusate CAP* 100 MG PO SCH (08:20)
[2019-04-02] MEDS: Magnesium Hydroxide LIQ* 30 ML UDC PO SCH (08:20)
[2019-04-02] MEDS ORDERED: Apixaban* 2.5 MG TAB PO SCH (09:00)
--- NOTE | 2019-04-02 11:59 | DS ---
Orthopedic Discharge Summary - Discharge Summary Date of Admission:04/01/19 Date of Discharge: 04/02/19 Date of Surgery: 04/01/19 Attending Orthopedic Provider: Dr. Parada Pre-operative Diagnosis: Degenerative arthritis left knee Operative Procedure: Left total knee arthroplasty Disposition of Patient: home Condition of Patient: Stable History: RIDGE CASTORENA is a 68 year old F with years of increasingly severe left knee pain. Patient has failed conservative management and has elected to undergo a left total knee replacement Hospital Course: RIDGE was admitted to [facility] on 04/01/19. Patient underwent a left total without complication followed by a brief recovery in PACU and transfer to the Short Stay Surgical Unit in stable condition. Our hospitalist service, physical therapy and occupational therapy also participated in this patients care. Post-op day 1: patient was alert and in no acute distress. Dressing was clean, dry and intact. Operative extremity dorsiflexion and plantarflexion intact, sensation intact to light touch distally , DP2+ dressing was changed, incision was clean, dry and intact. Patient was deemed to be medically and orthopedically stable for discharge. Physical therapy goals were met. Home Medications Medication Instructions Recorded Confirmed Type Albuterol HFA INHALER* [Ventolin 1 puff INH Q6H PRN 08/03/18 04/01/19 History HFA Inhaler*] Multivitamin [Multivitamins] 1 cap PO QAM 08/03/18 04/01/19 History Pantoprazole Sodium [Protonix] 40 mg PO EVERY OTHER DAY 08/03/18 04/01/19 History Rosuvastatin (NF) [Crestor (NF)] 5 mg PO QPM 08/03/18 04/01/19 History Cholecalciferol (Vitamin D3) 5,000 unit PO QAM 03/19/19 04/01/19 History [Vitamin D3] Apixaban* [Eliquis*] 2.5 mg PO BID #60 tab 04/02/19 Rx Docusate CAP* [Colace Cap*] 100 mg PO BID cap 04/02/19 Rx oxyCODONE TAB* [Roxycodone TAB 5 10 mg PO Q4H PRN #42 tab MDD 6 04/02/19 Rx mg*] Discharge home WBAT LLE follow up Dr. Parada 10-14 days Meds as above
[2019-04-02 12:05] VITALS: BP 123/53
== END 2019-04-02 14:30 | disposition home or self-care (01) | DRG 470 ==
LOC: AA 05:29 → SSU 11:06
PROVIDERS: ADMIT Orthopaedic Surgery Adult Reconstructive Orthopaedic Surgery; ATTEND Orthopaedic Surgery Adult Reconstructive Orthopaedic Surgery
PROC: 0SRD069 Replacement of Left Knee Joint with Oxidized Zirconium on Polyethylene Synthetic Substitute, Cemented, Open Approach (ICD-10-PCS; principal; 2019-04-01 07:30)
DX: M17.12 Unilateral primary osteoarthritis, left knee (principal); K21.9 Gastro-esophageal reflux disease without esophagitis; E78.00 Pure hypercholesterolemia, unspecified; J45.909 Unspecified asthma, uncomplicated; E78.2 Mixed hyperlipidemia; Z96.651 Presence of right artificial knee joint; M25.462 Effusion, left knee; M25.762 Osteophyte, left knee; E66.9 Obesity, unspecified; M85.80 Other specified disorders of bone density and structure, unspecified site; E55.9 Vitamin D deficiency, unspecified; Z90.721 Acquired absence of ovaries, unilateral; Z98.51 Tubal ligation status; Z68.35 Body mass index [BMI] 35.0-35.9, adult; Z82.49 Family history of ischemic heart disease and other diseases of the circulatory system; Z72.89 Other problems related to lifestyle
CPT/HCPCS: 36415; 80048; 85014; 85018; 85049; A9270-GY; C1776; G8978-GP-CJ; G8979-GP-CI; J0690; J1100; J2250; J2704; J2795; J3010

== ENCOUNTER 2023-04-10 09:49 | Observation (INO) ==
[~2023-04-10 09:49] MED LIST changes: +Buffered Lidocaine 1% SYRIN 1 ml INTRADERM ONE; -Buffered Lidocaine 1% SYRIN* 1 ML/SYRINGE INTRADERM ONE; +Lactated Ringers 1000 ml BAG 1,000 ML IV SCH; +Morphine 4 MG/ML VIAL (1 ml) IV PRN; +Naloxone 0.4 mg VIAL 0.4 mg/ml 1 ml VIAL IV PRN; +Prochlorperazine 5 mg/ml 2 ml VIAL (10 mg) IV PRN; -Tranexamic Acid 1,000 MG in NS 0.9% 50 ML* (outpatient use) IV SCH; +fentaNYL 100 mcg/2 ml 50 MCG/ML VIAL IV PRN
[2023-04-10] MEDS ORDERED: ceFAZolin 2 GM in NS PREMIX 2 GM/100 ML BAG IVPB ONE (10:12)
[2023-04-10 10:40] LABS: Rapid COVID-19 Molecular Undetected (Undetected)
[2023-04-10] MEDS ORDERED: fentaNYL 100 mcg/2 ml 50 MCG/ML VIAL ONE (10:58)
[2023-04-10] MEDS ORDERED: Midazolam 2 mg/2 ml VIAL 1 mg/ml 2 ml VIAL (2 mg) ONE (10:58)
[2023-04-10] MEDS ORDERED: Lidocaine 2% PF 5 ML VIAL ONE (11:00)
[2023-04-10] MEDS ORDERED: Phenylephrine 40 mcg/mL 10mL (400mcg) SYRINGE ONE ×2 (13:12→14:10)
[2023-04-10] MEDS ORDERED: Glycopyrrolate IV 0.2 MG/ML 1 ML VIAL ONE (13:16)
[2023-04-10] MEDS ORDERED: Dexamethasone IV 4 MG/ML VIAL 1 ml VIAL ONE (13:51)
[2023-04-10] MEDS ORDERED: Ondansetron 4 mg VIAL 2 MG/ML 2 ml VIAL ONE (13:51)
[2023-04-10] MEDS ORDERED: Acetaminophen IV 1 GM/100ML 1,000 MG/100 ML BAG IV ONE (13:52)
[2023-04-10] MEDS ORDERED: Propofol 10 MG/ML 20 ML BTL ONE ×2 (14:14→14:54)
[2023-04-10] MEDS ORDERED: Ondansetron ODT 4 mg TAB 4 MG TAB PO PRN (15:22)
[2023-04-10] MEDS ORDERED: Ondansetron 4 mg VIAL 2 MG/ML 2 ml VIAL IV PRN (15:22)
[2023-04-10] MEDS ORDERED: Morphine 2 MG/ML SYRINGE IV PRN (15:22)
[2023-04-10] MEDS ORDERED: Magnesium Hydroxide LIQ 30 ML UDC PO PRN (15:22)
[2023-04-10] MEDS ORDERED: Lactulose 30 ml UDC PO PRN (15:22)
[2023-04-10] MEDS ORDERED: Prochlorperazine 5 mg/ml 2 ml VIAL (10 mg) ONE (15:56)
[2023-04-10] MEDS ORDERED: Albuterol HFA INHALER 8 gm MDI INH PRN (16:22)
[2023-04-10] MEDS: Lactated Ringers 1000 ml BAG 1,000 ML IV SCH (17:13)
[2023-04-10] MEDS: Magnesium Hydroxide LIQ 30 ML UDC PO SCH (21:13)
[2023-04-10] MEDS: ceFAZolin 1 GM ADVAN 1 GM in NS 0.9% 50 ML 50 ML IVPB SCH (21:19)
[2023-04-11] MEDS: Lactated Ringers 1000 ml BAG 1,000 ML IV SCH (04:27)
[2023-04-11] MEDS: ceFAZolin 1 GM ADVAN 1 GM in NS 0.9% 50 ML 50 ML IVPB SCH ×2 (04:27→13:00)
[2023-04-11 07:03] LABS: Creatinine, Serum 0.77 mg/dL (0.51-0.95); eGFR CKD-EPI 82.4 (>60)
[2023-04-11 07:37] LABS: Hematocrit 40.1 % (35-45); Hemoglobin 13.4 g/dL (11.5-14.3); Mean Platelet Volume 7.9 fL (7.5-11.2); Platelet Count 259 10^3/uL (150-450)
[2023-04-11] MEDS: Magnesium Hydroxide LIQ 30 ML UDC PO SCH (08:08)
[2023-04-11] MEDS ORDERED: Vitamin THERAPEUTIC TAB PO SCH (09:00)
[2023-04-11] MEDS ORDERED: MULTIVITAMIN PO SCH (09:00)
[2023-04-11 10:10] VITALS: BP 103/60
== END 2023-04-11 13:49 | disposition home or self-care (01) ==
LOC: OR 09:49 → SSU 09:49
PROVIDERS: ADMIT Orthopaedic Surgery Adult Reconstructive Orthopaedic Surgery; ATTEND Orthopaedic Surgery Adult Reconstructive Orthopaedic Surgery

== ENCOUNTER 2024-04-22 08:13 | Observation (INO) ==
[2024-04-22] MEDS ORDERED: Dexamethasone IV 4 MG/ML VIAL 1 ml VIAL ONE ×2 (08:28→08:43)
[2024-04-22] MEDS ORDERED: Lidocaine 2% PF 5 ML VIAL ONE (08:28)
[2024-04-22] MEDS ORDERED: fentaNYL 250 mcg/5 ml 50 MCG/ML 5 ml VIAL (250 MCG) ONE (08:28)
[2024-04-22] MEDS ORDERED: Ondansetron 4 mg VIAL 2 MG/ML 2 ml VIAL ONE (08:28)
[2024-04-22] MEDS ORDERED: Propofol 0 MG/0 ML BTL ONE (08:28)
[2024-04-22] MEDS ORDERED: Midazolam 2 mg/2 ml VIAL 1 mg/ml 2 ml VIAL (2 mg) ONE ×2 (08:28→08:29)
[2024-04-22] MEDS ORDERED: Tranexamic Acid 1 GM/100ML BAG 2,000 MG/200 ML BAG IV ONE (08:43)
[2024-04-22] MEDS ORDERED: ceFAZolin 2 GM PREMIX 2 GM/50 ML BAG ONE (08:43)
[2024-04-22] MEDS ORDERED: Famotidine IV 10 MG/ML 2 ml VIAL (20 mg) ONE (08:44)
[2024-04-22 08:51] LABS: Rapid COVID-19 Molecular Undetected (Undetected)
[2024-04-22] MEDS: Buffered Lidocaine 1% SYRIN 1 ml INTRADERM ONE (09:06)
[2024-04-22] MEDS: Dexamethasone IV 4 MG/ML VIAL 1 ml VIAL IV SLOW PU ONE (09:07)
[2024-04-22] MEDS ORDERED: Propofol 10 MG/ML 20 ML BTL ONE (09:34)
[2024-04-22] MEDS ORDERED: ROPIVACAINE 5 MG/ML 30 ML BTL (0.5%) ONE (10:19)
[2024-04-22] MEDS ORDERED: Rocuronium 50 mg VIAL 10 mg/ml 5 ml VIAL (50 mg) ONE (11:28)
[2024-04-22] MEDS ORDERED: fentaNYL 100 mcg/2 ml 50 MCG/ML VIAL ONE ×4 (11:42→14:51)
[2024-04-22] MEDS ORDERED: HYDROmorphone 0.5 MG/0.5 ML SYRINGE ONE ×2 (11:42→12:08)
[2024-04-22] MEDS ORDERED: Lactulose 30 ml UDC PO PRN (11:49)
[2024-04-22] MEDS ORDERED: Ondansetron 4 mg VIAL 2 MG/ML 2 ml VIAL IV PRN (11:49)
[2024-04-22] MEDS ORDERED: Ondansetron ODT 4 mg TAB 4 MG TAB PO PRN (11:49)
[2024-04-22] MEDS ORDERED: Morphine 2 MG/ML SYRINGE IV PRN (11:49)
[2024-04-22] MEDS ORDERED: Calcium Carb (TUMS) 500 mg CHEW TAB PO PRN (11:49)
[2024-04-22] MEDS ORDERED: Magnesium Hydroxide LIQ 30 ML UDC PO PRN (11:49)
[2024-04-22] MEDS ORDERED: Morphine 4 MG/ML VIAL (1 ml) IV PRN (12:15)
[2024-04-22] MEDS ORDERED: Naloxone 0.4 mg VIAL 0.4 mg/ml 1 ml VIAL IV PRN (12:15)
[2024-04-22] MEDS ORDERED: oxyCODONE/Acetamin 5/325 mg TAB PO PRN (12:15)
[2024-04-22] MEDS: fentaNYL 100 mcg/2 ml 50 MCG/ML VIAL IV PRN (13:59)
[2024-04-22] MEDS ORDERED: Dextran 70/Hypromellose Tears Eye Drops 15 ml BTL (for Artificials Tears) BOTH EYES PRN (15:25)
[2024-04-22] MEDS ORDERED: Albuterol HFA INHALER 8 gm MDI INH PRN (16:12)
[2024-04-22] MEDS: Famotidine IV 10 MG/ML 2 ml VIAL (20 mg) IV ONE (16:57)
[2024-04-22] MEDS: Lactated Ringers 1000 ml BAG 1,000 ML IV SCH ×2 (16:57→17:47)
[2024-04-22] MEDS: ceFAZolin 2 GM in NS PREMIX 2 GM/100 ML BAG IVPB SCH (20:13)
[2024-04-22] MEDS: Magnesium Hydroxide LIQ 30 ML UDC PO SCH (20:13)
[2024-04-23 06:52] LABS: Hematocrit 37.1 % (35-45); Hemoglobin 12.5 g/dL (11.5-14.3); Mean Platelet Volume 7.4 fL (7.5-11.2); Platelet Count 247 10^3/uL (150-450)
[2024-04-23 07:28] LABS: Calcium 8.5 mg/dL (8.6-10.3)
[2024-04-23 08:05] LABS: Creatinine, Serum 0.69 mg/dL (0.51-0.95); eGFR CKD-EPI 92.2 (>60)
[2024-04-23] MEDS: Cholecalciferol (VIT D3) 1,000 unit TAB PO SCH (08:22)
[2024-04-23] MEDS: Vitamin THERAPEUTIC TAB PO SCH (10:16)
[2024-04-23 14:38] VITALS: BP 117/51
== END 2024-04-23 17:10 | disposition home or self-care (01) ==
LOC: SSU 08:13 → OR 08:13
PROVIDERS: ADMIT Orthopaedic Surgery Adult Reconstructive Orthopaedic Surgery; ATTEND Orthopaedic Surgery Adult Reconstructive Orthopaedic Surgery